=== PATIENT | female | born 1975 | race Caucasian/White ===

== ENCOUNTER → 2017-09-21 | Outpatient (CLI) | payer BC ==
--- NOTE | 2017-09-21 11:49 | MM ---
Reason for exam: screening (asymptomatic). Last mammogram was performed 1 year and 1 month ago. History: Family history of breast cancer in maternal grandmother at age 63. Took hormonal contraceptives for 7 years. Physical Findings: A clinical breast exam by your physician is recommended on an annual basis and results should be correlated with mammographic findings. MG 3D Screening Mammo W/Cad Bilateral CC and MLO view(s) were taken. Prior study comparison: August 09, 2016, bilateral MG 3d diag mammo w/cad VINOD. August 18, 2013, bilateral digital screening mammo w/CAD. The breast tissue is heterogeneously dense. This may lower the sensitivity of mammography. There are typically benign round calcifications in both breasts. There is chronic nodularity in the left breast. There is no discrete abnormality. ASSESSMENT: Benign, BI-RAD 2 RECOMMENDATION: Routine screening mammogram of both breasts in 1 year.
== END | disposition home or self-care (01) ==
LOC: RADMAMWWP 10:50
PROVIDERS: ATTEND Family Medicine
DX: Z12.31 Encounter for screening mammogram for malignant neoplasm of breast (principal)
CPT/HCPCS: 77063; G0202

== ENCOUNTER → 2018-11-14 | Outpatient (CLI) | payer BC ==
--- NOTE | 2018-11-15 10:23 | MM ---
Reason for exam: screening (asymptomatic). Last mammogram was performed 1 year and 2 months ago. History: Family history of breast cancer in maternal grandmother at age 63. Took hormonal contraceptives for 7 years. Physical Findings: A clinical breast exam by your physician is recommended on an annual basis and results should be correlated with mammographic findings. MG 3D Screening Mammo W/Cad Bilateral CC and MLO view(s) were taken. Prior study comparison: September 21, 2017, bilateral MG 3d screening mammo w/cad. August 09, 2016, bilateral MG 3d diag mammo w/cad VINOD. The breast tissue is heterogeneously dense. This may lower the sensitivity of mammography. Asymmetric denisty superiorly on the left MLO view does not persist on MLO OUTDOOR ADVENTURE LEADER view. No significant changes when compared with prior studies. ASSESSMENT: Negative, BI-RAD 1 RECOMMENDATION: Routine screening mammogram of both breasts in 1 year.
--- NOTE | 2018-11-15 15:15 | US ---
EXAMINATION TYPE: US thyroid st tissue head/neck DATE OF EXAM: 11/14/2018 COMPARISON: US CLINICAL HISTORY: E04.9 NONTOXIC GOITER. GLAND SIZE: Right Lobe: 5.1 x 1.9 x 1.7 cm Overall Parenchyma: homogenous Left Lobe: 4.8 x 1.3 x 1.5 cm Overall Parenchyma: homogeneous Isthmus Thickness: 0.4 cm NODULES RIGHT: # of nodules measured on right: 0 LEFT: # of nodules measured on left: 1 1. 0.5 X 0.3 x 0.6 cm hypoechoic mixed nodule at the lower pole with well-defined margins. This no dule is wider than tall and shows no intranodular vascularity. Prior size: not seen on prior ISTHMUS: # of nodules measured in the isthmus: 0 Bilateral neck scanned, no evidence of lymphadenopathy. IMPRESSION: Subcentimeter nodule left lobe thyroid
== END | disposition home or self-care (01) ==
LOC: RADMAMWWP 16:01
PROVIDERS: ATTEND Nurse Practitioner Family
DX: Z12.31 Encounter for screening mammogram for malignant neoplasm of breast (principal); E04.1 Nontoxic single thyroid nodule
CPT/HCPCS: 76536; 77063; 77067

== ENCOUNTER → 2018-11-14 | Outpatient (CLI) | payer BC ==
[2018-11-14 09:31] LABS: Basophils # (A) 0.1 k/uL (0-0.2); Basophils % (A) 1 %; Eosinophils # (A) 0.5 k/uL (0-0.7); Eosinophils % (A) 5 %; HCT 43.2 % (34.0-46.0); HGB 14.4 gm/dL (11.4-16.0); Lymphocytes # (A) 3.2 k/uL (1.0-4.8); Lymphocytes % (A) 35 %; MCH 30.6 pg (25.0-35.0); MCHC 33.4 g/dL (31.0-37.0); MCV 91.6 fL (80.0-100.0); Mean Platelet Volume 6.8; Monocytes # (A) 0.5 k/uL (0-1.0); Monocytes % (A) 5 %; Neutrophils # (A) 4.8 k/uL (1.3-7.7); Neutrophils % (A) 52 %; Platelet Count 323 k/uL (150-450); RBC 4.72 m/uL (3.80-5.40); RDW 13.1 % (11.5-15.5); WBC 9.2 k/uL (3.8-10.6)
[2018-11-14 18:16] LABS: Albumin 4.4 g/dL (3.80-4.90); Anion Gap 10.6 mmol/L (4.00-12.00); Calcium 9.5 mg/dL (8.7-10.3); Carbon Dioxide 23.4 mmol/L (21.6-31.8); Globulin 2.2 g/dL (1.6-3.3); LDL Cholesterol,Calculated 85.2 mg/dL (0.0-131.0); Potassium 4.6 mmol/L (3.5-5.5); Total Bilirubin 0.4 mg/dL (0.2-1.2); Total Protein 6.6 g/dL (6.2-8.2); VLDL Calculation 19.8 mg/dL (5.00-40.00)
[2018-11-14 18:24] LABS: T4, Free (Free Thyroxine) 1.2 ng/dL (0.80-1.80)
== END ==
LOC: LABWHC1 08:31
PROVIDERS: ATTEND Nurse Practitioner Family
DX: E04.9 Nontoxic goiter, unspecified (principal); E55.9 Vitamin D deficiency, unspecified; Z13.29 Encounter for screening for other suspected endocrine disorder; Z13.220 Encounter for screening for lipoid disorders
CPT/HCPCS: 36415; 80053; 80061; 82306; 84439; 84443; 84481; 85025

== ENCOUNTER → 2019-04-11 | Outpatient (CLI) | payer BC ==
--- NOTE | 2019-04-11 08:51 | CT ---
EXAMINATION TYPE: CT iac wo con DATE OF EXAM: 04/11/2019 COMPARISON: None HISTORY: Chronic left ear otalgia CT DLP: 150mGycm Automated exposure control for dose reduction was used. FINDINGS: The external auditory canals are patent bilaterally. Mastoid air cells show no evidence of abnormal opacification bilaterally. The middle ear ossicles are symmetric and unremarkable. There is no evidence of suspicious surrounding soft tissue density to suggest cholesteatoma. The scutum is preserved bilaterally. The cochlea and the semicircular canals are symmetric and unremarkable. Ves tibular aqueduct and internal carotid canal appear unremarkable. Temporomandibular joints are mainta ined bilaterally. Mucosal thickening of maxillary sinuses and sphenoid sinus. IMPRESSION: No significant abnormality seen to account for patient's symptoms.
== END | disposition home or self-care (01) ==
LOC: RADCTMAIN 08:20
PROVIDERS: ATTEND Otolaryngology
DX: H92.02 Otalgia, left ear (principal)
CPT/HCPCS: 70480

== ENCOUNTER 2021-03-28 06:18 | Emergency (ER) | payer BC ==
[2021-03-28 06:34] VITALS: TEMP 98
[2021-03-28] MEDS ORDERED: ONDANSETRON 4 MG/2 ML VIAL IVP STA (06:56)
[2021-03-28] MEDS ORDERED: KETOROLAC 15 MG/ML 1 ML VIAL IVP STA (06:56)
[2021-03-28] MEDS ORDERED: SODIUM CHLORIDE 0.9% 1,000 ML IV STA (06:56)
--- NOTE | 2021-03-28 07:08 | ED ---
Abdominal Pain HPI - General Chief Complaint: Abdominal Pain Stated Complaint: Abd Pain Time Seen by Provider: 03/28/21 06:45 Source: patient Mode of arrival: ambulatory Limitations: no limitations - History of Present Illness Initial Comments: Patient is a 45-year-old female presenting to emergency Department with complaints of left lower abdominal pain for the past 3 days. She states the pain started in left lower quadrant, with minimal at first but has steadily been progressing over the last couple days. She's also been constipated, she's tried MiraLAX and stool softener with only a small bowel movement in the last 4 days. She admits to history of ovarian torsion, partial hysterectomy, C-sections. She had a normal colonoscopy about 3 years ago, no signs of diverticuli, no history of kidney stones. Pain sometimes does shoot towards her left back. She denies any fevers or chills, no chest pain or shortness of breath. She does admit to some nausea but no vomiting. She denies any dysuria. She has no further complaints at this time. - Related Data Home Medications Medication Instructions Recorded Confirmed Rizatriptan Benzoate [Maxalt] 10 mg PO DAILY PRN 03/29/21 03/29/21 Allergies Allergy/AdvReac Type Severity Reaction Status Date / Time latex Allergy Swelling Verified 03/29/21 09:50 Sulfa (Sulfonamide Allergy Rash/Hives Verified 03/29/21 09:50 Antibiotics) Review of Systems ROS Statement: Those systems with pertinent positive or pertinent negative responses have been documented in the HPI. ROS Other: All systems not noted in ROS Statement are negative. Past Medical History Past Medical History: No Reported History History of Any Multi-Drug Resistant Organisms: None Reported Past Surgical History: Adenoidectomy, Section, Hysterectomy, Orthopedic Surgery, Tonsillectomy Additional Past Surgical History / Comment(s): lap ovarian cyst removal. right elbow or Past Anesthesia/Blood Transfusion Reactions: Postoperative Nausea & Vomiting (PONV) Past Psychological History: No Psychological Hx Reported Smoking Status: Never smoker Past Alcohol Use History: None Reported Past Drug Use History: None Reported - Past Family History Mother Family Medical History: Thyroid Disorder General Exam - General Exam Comments Initial Comments: GENERAL: Patient is well-developed and well-nourished. Patient is nontoxic and in mild distress. HEAD: Atraumatic, normocephalic. EYES: Pupils equal round and reactive to light, extraocular movements intact, sclera anicteric, conjunctiva are normal. Eyelids were unremarkable. ENT: TMs normal, nares patent, oropharynx clear without exudates. Moist mucous membranes. NECK: Normal range of motion, supple without lymphadenopathy or JVD. LUNGS: Unlabored respirations. Breath sounds clear to auscultation bilaterally and equal. No wheezes rales or rhonchi. HEART: Regular rate and rhythm without murmurs, rubs or gallops. ABDOMEN: Soft, tender to palpation of the left lower quadrant, hypoactive bowel sounds. No guarding, no rebound. No masses appreciated. : Deferred MUSCULOSKELETAL: Normal extremities with adequate strength and normal range of motion, no pitting or edema. No clubbing or cyanosis. NEUROLOGICAL: Patient is alert and oriented x 3. Motor and sensory are also intact. Cranial nerves II through XII grossly intact. Symmetrical smile. Normal speech, normal gait. PSYCH: Normal mood, normal affect. SKIN: Warm, Dry, normal turgor, no rashes or lesions noted. Limitations: no limitations Course Vital Signs 03/28/21 03/28/21 06:30 07:45 Temperature 98.0 F Pulse Rate 108 H 93 Respiratory 18 16 Rate Blood Pressure 169/107 166/88 O2 Sat by Pulse 98 99 Oximetry Medical Decision Making - Medical Decision Making Patient is a 45-year-old female here with left lower quadrant pain for the past 3 days. She's had some mild nausea no vomiting, constipated. She's had surgery for ovarian torsion, partial hysterectomy, C-sections, no other abdominal surgeries. Afebrile here. Labs are all within normal limits, no acute process, urine is normal. CT of the abdomen and pelvis shows nonspecific findings, correlate for possible colitis. I discussed these findings with the patient. She was given fluids, pain control. I recommended a stool softener to help with the constipation and see if that helps with her pain. I do not feel like antibiotics are warranted at this time since her symptoms have only been in a short amount time. She is comfortable with this plan of care. She'll follow-up with her primary care physician. Return parameters were discussed with her and she verbalized understanding. Case discussed with Dr. Duke. - Lab Data Result diagrams: 03/28/21 07:05 03/28/21 07:05 Lab Results 03/28/21 03/28/21 03/28/21 Range/Units 07:05 07:05 07:05 WBC 10.9 H (3.8-10.6) k/uL RBC 4.84 (3.80-5.40) m/uL Hgb 15.0 (11.4-16.0) gm/dL Hct 42.9 (34.0-46.0) % MCV 88.7 (80.0-100.0) fL MCH 31.1 (25.0-35.0) pg MCHC 35.1 (31.0-37.0) g/dL RDW 12.9 (11.5-15.5) % Plt Count 337 (150-450) k/uL MPV 6.7 Neutrophils % 65 % Lymphocytes % 25 % Monocytes % 5 % Eosinophils % 3 % Basophils % 1 % Neutrophils # 7.1 (1.3-7.7) k/uL Lymphocytes # 2.7 (1.0-4.8) k/uL Monocytes # 0.5 (0-1.0) k/uL Eosinophils # 0.3 (0-0.7) k/uL Basophils # 0.1 (0-0.2) k/uL Sodium 141 (137-145) mmol/L Potassium 4.2 (3.5-5.1) mmol/L Chloride 105 (98-107) mmol/L Carbon Dioxide 27 (22-30) mmol/L Anion Gap 9 mmol/L BUN 14 (7-17) mg/dL Creatinine 0.77 (0.52-1.04) mg/dL Est GFR (CKD-EPI)AfAm >90 (>60 ml/min/1.73 sqM) Est GFR (CKD-EPI)NonAf >90 (>60 ml/min/1.73 sqM) Glucose 111 H (74-99) mg/dL Plasma Lactic Acid Kenny (0.7-2.0) mmol/L Calcium 9.9 (8.4-10.2) mg/dL Total Bilirubin 0.3 (0.2-1.3) mg/dL AST 20 (14-36) U/L ALT 18 (4-34) U/L Alkaline Phosphatase 84 (38-126) U/L Total Protein 7.4 (6.3-8.2) g/dL Albumin 4.6 (3.5-5.0) g/dL Amylase 65 (30-110) U/L Lipase 84 (23-300) U/L Urine Color Light Yellow Urine Appearance Clear (Clear) Urine pH 6.5 (5.0-8.0) Ur Specific [place] 1.006 (1.001-1.035) Urine Protein Negative (Negative) Urine Glucose (UA) Negative (Negative) Urine Ketones Negative (Negative) Urine Blood Negative (Negative) Urine Nitrite Negative (Negative) Urine Bilirubin Negative (Negative) Urine Urobilinogen <2.0 (<2.0) mg/dL Ur Leukocyte Esterase Negative (Negative) 03/28/21 Range/Units 07:05 WBC (3.8-10.6) k/uL RBC (3.80-5.40) m/uL Hgb (11.4-16.0) gm/dL Hct (34.0-46.0) % MCV (80.0-100.0) fL MCH (25.0-35.0) pg MCHC (31.0-37.0) g/dL RDW (11.5-15.5) % Plt Count (150-450) k/uL MPV Neutrophils % % Lymphocytes % % Monocytes % % Eosinophils % % Basophils % % Neutrophils # (1.3-7.7) k/uL Lymphocytes # (1.0-4.8) k/uL Monocytes # (0-1.0) k/uL Eosinophils # (0-0.7) k/uL Basophils # (0-0.2) k/uL Sodium (137-145) mmol/L Potassium (3.5-5.1) mmol/L Chloride (98-107) mmol/L Carbon Dioxide (22-30) mmol/L Anion Gap mmol/L BUN (7-17) mg/dL Creatinine (0.52-1.04) mg/dL Est GFR (CKD-EPI)AfAm (>60 ml/min/1.73 sqM) Est GFR (CKD-EPI)NonAf (>60 ml/min/1.73 sqM) Glucose (74-99) mg/dL Plasma Lactic Acid Kenny 1.0 (0.7-2.0) mmol/L Calcium (8.4-10.2) mg/dL Total Bilirubin (0.2-1.3) mg/dL AST (14-36) U/L ALT (4-34) U/L Alkaline Phosphatase (38-126) U/L Total Protein (6.3-8.2) g/dL Albumin (3.5-5.0) g/dL Amylase (30-110) U/L Lipase (23-300) U/L Urine Color Urine Appearance (Clear) Urine pH (5.0-8.0) Ur Specific [place] (1.001-1.035) Urine Protein (Negative) Urine Glucose (UA) (Negative) Urine Ketones (Negative) Urine Blood (Negative) Urine Nitrite (Negative) Urine Bilirubin (Negative) Urine Urobilinogen (<2.0) mg/dL Ur Leukocyte Esterase (Negative) Disposition Clinical Impression: Abdominal pain, Constipation Disposition: HOME SELF-CARE Condition: Stable Instructions (If sedation given, give patient instructions): Abdominal Pain (ED) Additional Instructions: Please return to the Emergency Department if symptoms worsen or any other concerns. Continue to increase your water intake, trial stool softeners/enema at home. Follow up with your primary care physician. Is patient prescribed a controlled substance at d/c from ED?: No Referrals: Magaly Davison DO [Primary Care Provider] - 1-2 days Time of Disposition: 09:00
[2021-03-28 07:25] LABS: Basophils # (A) 0.1 k/uL (0-0.2); Basophils % (A) 1 %; Eosinophils # (A) 0.3 k/uL (0-0.7); Eosinophils % (A) 3 %; HCT 42.9 % (34.0-46.0); Lymphocytes # (A) 2.7 k/uL (1.0-4.8); Lymphocytes % (A) 25 %; MCH 31.1 pg (25.0-35.0); MCHC 35.1 g/dL (31.0-37.0); MCV 88.7 fL (80.0-100.0); Mean Platelet Volume 6.7; Monocytes # (A) 0.5 k/uL (0-1.0); Monocytes % (A) 5 %; Neutrophils # (A) 7.1 k/uL (1.3-7.7); Neutrophils % (A) 65 %; Platelet Count 337 k/uL (150-450); RBC 4.84 m/uL (3.80-5.40); RDW 12.9 % (11.5-15.5); WBC 10.9 k/uL (3.8-10.6)
[2021-03-28 07:34] LABS: Appearance,Urine Clear (Clear); Bilirubin,Urine Negative (Negative); Blood,Urine Negative (Negative); Color,Urine Light Yellow; Glucose,Urine (UA) Negative (Negative); Ketones,Urine Negative (Negative); Leukocyte Esterase,Urine Negative (Negative); Nitrite,Urine Negative (Negative); PH, Urine 6.5 (5.0-8.0); Protein,Urine Negative (Negative); Specific Gravity,Urine 1.006 (1.001-1.035); Urobilinogen,Urine <2.0 mg/dL (<2.0)
[2021-03-28 07:43] LABS: ALT 18 U/L (4-34); AST 20 U/L (14-36); African American GFR (CKD) >90 (>60 ml/min/1.73 sqM); Albumin 4.6 g/dL (3.5-5.0); Alkaline Phosphatase 84 U/L (38-126); Amylase 65 U/L (30-110); Anion Gap 9 mmol/L; Blood Urea Nitrogen 14 mg/dL (7-17); Calcium 9.9 mg/dL (8.4-10.2); Carbon Dioxide 27 mmol/L (22-30); Chloride 105 mmol/L (98-107); Glucose 111 mg/dL (74-99); Lipase 84 U/L (23-300); Non-African American GFR(CKD) >90 (>60 ml/min/1.73 sqM); Potassium 4.2 mmol/L (3.5-5.1); Sodium 141 mmol/L (137-145); Total Bilirubin 0.3 mg/dL (0.2-1.3); Total Protein 7.4 g/dL (6.3-8.2)
[2021-03-28 07:48] VITALS: BP 166/88; PULSE 93; RESP 16
--- NOTE | 2021-03-28 08:24 | CT ---
EXAMINATION TYPE: CT abdomen pelvis w con DATE OF EXAM: 03/28/2021 COMPARISON: CT 08/04/2016 HISTORY: Left lower quadrant pain CT DLP: 1738.2 mGycm Automated exposure control for dose reduction was used. TECHNIQUE: Helical acquisition of images from the lung bases through the pelvis have been completed. CONTRAST: Performed without Oral Contrast and with IV Contrast, patient injected with 100 mL of Isovue 300. FINDINGS: LUNG BASES: No significant abnormality is appreciated. AORTA: No significant abnormality is appreciated. LIVER/GB: Patient is post cholecystectomy. No evident liver mass. PANCREAS: No significant abnormality is seen. SPLEEN: No significant abnormality is seen. ADRENALS: No significant abnormality is seen. KIDNEYS: No significant abnormality is seen. REPRODUCTIVE ORGANS: Not seen BOWEL: The colon shows low density. Suspect there is been prior appendectomy, surgical clips at the level of the suspected. Correlate. FREE AIR: No Free Air visible. ASCITES: None visible. PELVIC ADENOPATHY: None visualized. RETROPERITONEAL ADENOPATHY: No Retroperitoneal Adenopathy visible. URINARY BLADDER: Urinary bladder wall thickening may be due to lack of distention, correlate for pos sible cystitis. OSSEOUS STRUCTURES: No significant abnormality is seen. IMPRESSION: NONSPECIFIC FINDINGS, CORRELATE FOR POSSIBLE COLITIS, CYSTITIS. Postop changes as described.
[2021-03-28] MEDS ORDERED: MORPHINE SULFATE 2 MG/ML SYRINGE IVP ONE (08:59)
== END 2021-03-28 09:06 | disposition home or self-care (01) ==
LOC: EC 06:18
DX: R10.32 Left lower quadrant pain (principal); K59.00 Constipation, unspecified; R11.0 Nausea; Z91.040 Latex allergy status; Z88.2 Allergy status to sulfonamides; Z90.710 Acquired absence of both cervix and uterus; Z87.42 Personal history of other diseases of the female genital tract
CPT/HCPCS: 36415; 80053; 82150; 83605; 83690; 85025; 81003; 74177; 99284; 96374; 96375; 96361; J2405; J2270; J1885; Q9967

== ENCOUNTER 2021-03-29 08:28 | Inpatient (IN) | payer BC ==
[2021-03-29] MEDS ORDERED: SODIUM CHLORIDE 0.9% 1,000 ML IV STA (08:58)
[2021-03-29] MEDS ORDERED: KETOROLAC 15 MG/ML 1 ML VIAL IVP STA ×2 (08:58→11:29)
[2021-03-29] MEDS ORDERED: ONDANSETRON 4 MG/2 ML VIAL IVP STA (08:58)
[2021-03-29 09:24] LABS: Basophils # (A) 0.1 k/uL (0-0.2); Basophils % (A) 0 %; Eosinophils # (A) 0.3 k/uL (0-0.7); Eosinophils % (A) 2 %; HCT 42.7 % (34.0-46.0); Lymphocytes # (A) 2.7 k/uL (1.0-4.8); Lymphocytes % (A) 23 %; MCH 31.2 pg (25.0-35.0); MCHC 35.2 g/dL (31.0-37.0); MCV 88.6 fL (80.0-100.0); Mean Platelet Volume 6.9; Monocytes # (A) 0.6 k/uL (0-1.0); Monocytes % (A) 5 %; Neutrophils # (A) 7.9 k/uL (1.3-7.7); Neutrophils % (A) 68 %; Platelet Count 336 k/uL (150-450); RBC 4.82 m/uL (3.80-5.40); RDW 12.9 % (11.5-15.5); WBC 11.7 k/uL (3.8-10.6)
[2021-03-29 09:42] LABS: ALT 18 U/L (4-34); AST 22 U/L (14-36); African American GFR (CKD) >90 (>60 ml/min/1.73 sqM); Albumin 4.5 g/dL (3.5-5.0); Alkaline Phosphatase 71 U/L (38-126); Amylase 58 U/L (30-110); Anion Gap 8 mmol/L; Blood Urea Nitrogen 9 mg/dL (7-17); Calcium 9.5 mg/dL (8.4-10.2); Carbon Dioxide 27 mmol/L (22-30); Chloride 106 mmol/L (98-107); Glucose 102 mg/dL (74-99); Lipase 69 U/L (23-300); Non-African American GFR(CKD) >90 (>60 ml/min/1.73 sqM); Potassium 3.7 mmol/L (3.5-5.1); Sodium 141 mmol/L (137-145); Total Bilirubin 0.7 mg/dL (0.2-1.3); Total Protein 7.4 g/dL (6.3-8.2)
[2021-03-29 09:49] LABS: Appearance,Urine Clear (Clear); Bilirubin,Urine Negative (Negative); Blood,Urine Negative (Negative); Color,Urine Yellow; Glucose,Urine (UA) Negative (Negative); Ketones,Urine Negative (Negative); Leukocyte Esterase,Urine Negative (Negative); Nitrite,Urine Negative (Negative); Protein,Urine Trace (Negative); Urobilinogen,Urine <2.0 mg/dL (<2.0)
--- NOTE | 2021-03-29 09:59 | US ---
EXAMINATION TYPE: US transvaginal DATE OF EXAM: 03/29/2021 COMPARISON: 03/28/2021 CLINICAL HISTORY: LLQ pain. Pain, partial hysterectomy per patient. TECHNIQUE: Transvaginal (TV). Date of LMP: Hysterectomy EXAM MEASUREMENTS: 1. Uterus: Surgically absent 2. Endometrium: Surgically absent 3. Right Ovary: Surgically absent vs obscured by overlying bowel gas 4. Left Ovary: Surgically absent vs obscured by overlying bowel gas 5. Bilateral Adnexa: wnl 6. Posterior cul-de-sac: no free fluid IMPRESSION: 1. Hysterectomy. 2. The bilateral adnexa are obscured due to overlying bowel gas. The ovaries are not visualized. Jeanne elation with surgical history of oophorectomy is recommended. 3. No free fluid.
--- NOTE | 2021-03-29 11:38 | ED ---
Abdominal Pain HPI - General Chief Complaint: Abdominal Pain Stated Complaint: Revisit/Abd Pain Time Seen by Provider: 03/29/21 08:34 Source: patient Mode of arrival: wheelchair Limitations: no limitations - History of Present Illness Initial Comments: Patient is a 45-year-old female presenting to the emergency Department with complaints of continued left lower quadrant pain for the last 4-5 days. Patient was seen and evaluated the ER yesterday, diagnosed with possible colitis. She states she's went home, did a bowel prep and enema and did have lots of bowel movements. She states her pain has worsened, is very tender to touch in the left lower quadrant. She's had history of multiple C-sections, complete hysterectomy, ovarian torsion, appendectomy, cholecystectomy. She denies any fevers or chills, no chest pain or shortness of breath. She continues to be nauseous and vomiting. She denies any dysuria. She has no further complaints at this time. Upon arrival to the ER her vitals are stable. - Related Data Home Medications Medication Instructions Recorded Confirmed Rizatriptan Benzoate [Maxalt] 10 mg PO DAILY PRN 03/29/21 03/29/21 Allergies Allergy/AdvReac Type Severity Reaction Status Date / Time latex Allergy Swelling Verified 03/29/21 09:50 Sulfa (Sulfonamide Allergy Rash/Hives Verified 03/29/21 09:50 Antibiotics) Review of Systems ROS Statement: Those systems with pertinent positive or pertinent negative responses have been documented in the HPI. ROS Other: All systems not noted in ROS Statement are negative. Past Medical History Past Medical History: No Reported History History of Any Multi-Drug Resistant Organisms: None Reported Past Surgical History: Adenoidectomy, Section, Hysterectomy, Orthopedic Surgery, Tonsillectomy Additional Past Surgical History / Comment(s): lap ovarian cyst removal. right elbow or Past Anesthesia/Blood Transfusion Reactions: Postoperative Nausea & Vomiting (PONV) Past Psychological History: No Psychological Hx Reported Smoking Status: Never smoker Past Alcohol Use History: None Reported Past Drug Use History: None Reported - Past Family History Mother Family Medical History: Thyroid Disorder General Exam - General Exam Comments Initial Comments: GENERAL: Patient is well-developed and well-nourished. Patient is nontoxic and in moderate distress. HEAD: Atraumatic, normocephalic. EYES: Pupils equal round and reactive to light, extraocular movements intact, sclera anicteric, conjunctiva are normal. Eyelids were unremarkable. ENT: TMs normal, nares patent, oropharynx clear without exudates. Moist mucous membranes. NECK: Normal range of motion, supple without lymphadenopathy or JVD. LUNGS: Unlabored respirations. Breath sounds clear to auscultation bilaterally and equal. No wheezes rales or rhonchi. HEART: Regular rate and rhythm without murmurs, rubs or gallops. ABDOMEN: Soft, extremely tender to palpation of the left lower quadrant, normoactive bowel sounds. No guarding, no rebound. No masses appreciated. : Deferred MUSCULOSKELETAL: Normal extremities with adequate strength and normal range of motion, no pitting or edema. No clubbing or cyanosis. NEUROLOGICAL: Patient is alert and oriented x 3. Motor and sensory are also intact. Cranial nerves II through XII grossly intact. Symmetrical smile. Normal speech, normal gait. PSYCH: Normal mood, normal affect. SKIN: Warm, Dry, normal turgor, no rashes or lesions noted. Limitations: no limitations Course Vital Signs 03/29/21 03/29/21 08:29 12:06 Temperature 97.8 F Pulse Rate 100 91 Respiratory 18 18 Rate Blood Pressure 143/94 143/80 O2 Sat by Pulse 100 97 Oximetry Medical Decision Making - Medical Decision Making Patient is a 45-year-old female presenting with left lower quadrant pain over the past 4-5 days. She was seen and evaluated yesterday in the ER, diagnosed with colitis, had normal labs and normal CT other than the colitis. Patient has continued to today. She is extremely tender left lower quadrant. I did do an ultrasound of the pelvis, no acute abnormality. Patient's laboratory continues to show no abnormalities, all within normal limits. Patient was given pain medicine, nausea medicine continues to have extreme lower left quadrant pain. Patient is requesting to see a Dr. Gan, I did speak with him and he did agree to see her on consult. Patient accepted by Dr. Crawford. Case discussed with Dr. Duke. - Lab Data Result diagrams: 03/29/21 09:14 03/29/21 09:14 Lab Results 03/29/21 03/29/21 03/29/21 Range/Units 09:14 09:14 09:14 WBC 11.7 H (3.8-10.6) k/uL RBC 4.82 (3.80-5.40) m/uL Hgb 15.0 (11.4-16.0) gm/dL Hct 42.7 (34.0-46.0) % MCV 88.6 (80.0-100.0) fL MCH 31.2 (25.0-35.0) pg MCHC 35.2 (31.0-37.0) g/dL RDW 12.9 (11.5-15.5) % Plt Count 336 (150-450) k/uL MPV 6.9 Neutrophils % 68 % Lymphocytes % 23 % Monocytes % 5 % Eosinophils % 2 % Basophils % 0 % Neutrophils # 7.9 H (1.3-7.7) k/uL Lymphocytes # 2.7 (1.0-4.8) k/uL Monocytes # 0.6 (0-1.0) k/uL Eosinophils # 0.3 (0-0.7) k/uL Basophils # 0.1 (0-0.2) k/uL Sodium 141 (137-145) mmol/L Potassium 3.7 (3.5-5.1) mmol/L Chloride 106 (98-107) mmol/L Carbon Dioxide 27 (22-30) mmol/L Anion Gap 8 mmol/L BUN 9 (7-17) mg/dL Creatinine 0.77 (0.52-1.04) mg/dL Est GFR (CKD-EPI)AfAm >90 (>60 ml/min/1.73 sqM) Est GFR (CKD-EPI)NonAf >90 (>60 ml/min/1.73 sqM) Glucose 102 H (74-99) mg/dL Plasma Lactic Acid Kenny (0.7-2.0) mmol/L Calcium 9.5 (8.4-10.2) mg/dL Total Bilirubin 0.7 (0.2-1.3) mg/dL AST 22 (14-36) U/L ALT 18 (4-34) U/L Alkaline Phosphatase 71 (38-126) U/L Total Protein 7.4 (6.3-8.2) g/dL Albumin 4.5 (3.5-5.0) g/dL Amylase 58 (30-110) U/L Lipase 69 (23-300) U/L Urine Color Yellow Urine Appearance Clear (Clear) Urine pH 7.0 (5.0-8.0) Ur Specific [place] 1.020 (1.001-1.035) Urine Protein Trace H (Negative) Urine Glucose (UA) Negative (Negative) Urine Ketones Negative (Negative) Urine Blood Negative (Negative) Urine Nitrite Negative (Negative) Urine Bilirubin Negative (Negative) Urine Urobilinogen <2.0 (<2.0) mg/dL Ur Leukocyte Esterase Negative (Negative) 03/29/21 Range/Units 09:14 WBC (3.8-10.6) k/uL RBC (3.80-5.40) m/uL Hgb (11.4-16.0) gm/dL Hct (34.0-46.0) % MCV (80.0-100.0) fL MCH (25.0-35.0) pg MCHC (31.0-37.0) g/dL RDW (11.5-15.5) % Plt Count (150-450) k/uL MPV Neutrophils % % Lymphocytes % % Monocytes % % Eosinophils % % Basophils % % Neutrophils # (1.3-7.7) k/uL Lymphocytes # (1.0-4.8) k/uL Monocytes # (0-1.0) k/uL Eosinophils # (0-0.7) k/uL Basophils # (0-0.2) k/uL Sodium (137-145) mmol/L Potassium (3.5-5.1) mmol/L Chloride (98-107) mmol/L Carbon Dioxide (22-30) mmol/L Anion Gap mmol/L BUN (7-17) mg/dL Creatinine (0.52-1.04) mg/dL Est GFR (CKD-EPI)AfAm (>60 ml/min/1.73 sqM) Est GFR (CKD-EPI)NonAf (>60 ml/min/1.73 sqM) Glucose (74-99) mg/dL Plasma Lactic Acid Kenny 1.2 (0.7-2.0) mmol/L Calcium (8.4-10.2) mg/dL Total Bilirubin (0.2-1.3) mg/dL AST (14-36) U/L ALT (4-34) U/L Alkaline Phosphatase (38-126) U/L Total Protein (6.3-8.2) g/dL Albumin (3.5-5.0) g/dL Amylase (30-110) U/L Lipase (23-300) U/L Urine Color Urine Appearance (Clear) Urine pH (5.0-8.0) Ur Specific [place] (1.001-1.035) Urine Protein (Negative) Urine Glucose (UA) (Negative) Urine Ketones (Negative) Urine Blood (Negative) Urine Nitrite (Negative) Urine Bilirubin (Negative) Urine Urobilinogen (<2.0) mg/dL Ur Leukocyte Esterase (Negative) Disposition Clinical Impression: Intractable abdominal pain, Nausea and vomiting Disposition: ADMITTED IP TO THIS [facility] Condition: Stable Decision Date: 03/29/21 Decision Time: 11:42
[2021-03-29] MEDS ORDERED: NALOXONE 0.4 MG/ML 1 ML VIAL IV PRN (11:40)
--- NOTE | 2021-03-29 12:51 | P.GSCN ---
History of Present Illness Consult date: 03/29/21 Reason for Consult: Abdominal pain History of present illness: 45-year-old female known to our service. Patient says she started having pain o n Sunday. Has been persistent since that time. Does wax and wane somewhat. Pain left lower quadrant radiating to the back. Mild nausea and 1 episode of vomiting yesterday. No change in bowel habits. No fevers. No dysuria or hematuria. No vaginal discharge. Says her pain reminds her of a previous right-sided ovarian torsion she had. Patient was concerned she may be constipated and took a bowel prep yesterday without resolution of her symptoms. She did have a CAT scan performed yesterday which showed no definite abnormalities. Bowel has very little stool present. Question mild wall thickening of the colon diffusely however likely secondary to nondistention. Review of Systems The patient denies any acute changes in vision or hearing, no dysphagia or odynophagia, no chest pain or shortness of breath, no dysuria or hematuria, no headache, no runny nose, no rectal bleeding or melena, no unexplained weight loss Past Medical History Past Medical History: No Reported History History of Any Multi-Drug Resistant Organisms: None Reported Past Surgical History: Adenoidectomy, Section, Hysterectomy, Orthopedic Surgery, Tonsillectomy Additional Past Surgical History / Comment(s): lap ovarian cyst removal. right elbow or Past Anesthesia/Blood Transfusion Reactions: Postoperative Nausea & Vomiting (PONV) Past Psychological History: No Psychological Hx Reported Smoking Status: Never smoker Past Alcohol Use History: None Reported Past Drug Use History: None Reported - Past Family History Mother Family Medical History: Thyroid Disorder Medications and Allergies Home Medications Medication Instructions Recorded Confirmed Type Rizatriptan Benzoate [Maxalt] 10 mg PO DAILY PRN 03/29/21 03/29/21 History Allergies Allergy/AdvReac Type Severity Reaction Status Date / Time latex Allergy Swelling Verified 03/29/21 09:50 Sulfa (Sulfonamide Allergy Rash/Hives Verified 03/29/21 09:50 Antibiotics) Surgical - Exam Vital Signs Temp Pulse Resp BP Pulse Ox 97.8 F 100 18 143/94 100 03/29/21 08:29 03/29/21 08:29 03/29/21 08:29 03/29/21 08:29 03/29/21 08:29 Physical exam: General: Well-developed, well-nourished HEENT: Normocephalic, sclerae nonicteric Abdomen: Mild left lower quadrant tenderness, nondistended Extremities: No edema Neuro: Alert and oriented Results - Labs 03/29/21 09:14 03/29/21 09:14 Abnormal Lab Results - Last 24 Hours (Table) 03/29/21 03/29/21 03/29/21 Range/Units 09:14 09:14 09:14 WBC 11.7 H (3.8-10.6) k/uL Neutrophils # 7.9 H (1.3-7.7) k/uL Glucose 102 H (74-99) mg/dL Urine Protein Trace H (Negative) Diabetes panel 03/29/21 Range/Units 09:14 Sodium 141 (137-145) mmol/L Potassium 3.7 (3.5-5.1) mmol/L Chloride 106 (98-107) mmol/L Carbon Dioxide 27 (22-30) mmol/L BUN 9 (7-17) mg/dL Creatinine 0.77 (0.52-1.04) mg/dL Glucose 102 H (74-99) mg/dL Calcium 9.5 (8.4-10.2) mg/dL AST 22 (14-36) U/L ALT 18 (4-34) U/L Alkaline Phosphatase 71 (38-126) U/L Total Protein 7.4 (6.3-8.2) g/dL Albumin 4.5 (3.5-5.0) g/dL Calcium panel 03/29/21 Range/Units 09:14 Calcium 9.5 (8.4-10.2) mg/dL Albumin 4.5 (3.5-5.0) g/dL Pituitary panel 03/29/21 Range/Units 09:14 Sodium 141 (137-145) mmol/L Potassium 3.7 (3.5-5.1) mmol/L Chloride 106 (98-107) mmol/L Carbon Dioxide 27 (22-30) mmol/L BUN 9 (7-17) mg/dL Creatinine 0.77 (0.52-1.04) mg/dL Glucose 102 H (74-99) mg/dL Calcium 9.5 (8.4-10.2) mg/dL Adrenal panel 03/29/21 Range/Units 09:14 Sodium 141 (137-145) mmol/L Potassium 3.7 (3.5-5.1) mmol/L Chloride 106 (98-107) mmol/L Carbon Dioxide 27 (22-30) mmol/L BUN 9 (7-17) mg/dL Creatinine 0.77 (0.52-1.04) mg/dL Glucose 102 H (74-99) mg/dL Calcium 9.5 (8.4-10.2) mg/dL Total Bilirubin 0.7 (0.2-1.3) mg/dL AST 22 (14-36) U/L ALT 18 (4-34) U/L Alkaline Phosphatase 71 (38-126) U/L Total Protein 7.4 (6.3-8.2) g/dL Albumin 4.5 (3.5-5.0) g/dL Assessment and Plan (1) Intractable abdominal pain Narrative/Plan: 45-year-old female with persistent left lower quadrant abdominal pain. Etiology unclear. Consider gynecology evaluation given the patient's history and lack o f other identifiable source of pain. Will empirically start IV Flagyl for possible mild colitis/diverticulitis. Will follow. Current Visit: Yes Status: Acute Code(s): R10.9 - UNSPECIFIED ABDOMINAL PAIN SNOMED Code(s): 35739118
[2021-03-29] MEDS: SODIUM CHLORIDE 0.9% 1,000 ML IV SCH (13:51)
[2021-03-29] MEDS ORDERED: SUMAtriptan succinate 50 MG TAB PO PRN (15:17)
[2021-03-29] MEDS: metroNIDAZOLE-NS PMX 500 MG in SALINE 1 100ML.BAG IVPB SCH ×2 (15:41→23:07)
[2021-03-29] MEDS: KETOROLAC 15 MG/ML 1 ML VIAL IVP PRN (20:23)
[2021-03-29] MEDS: ONDANSETRON 4 MG/2 ML VIAL IVP PRN (20:23)
--- NOTE | 2021-03-29 21:26 | P.HPIM ---
History of Present Illness H&P Date: 03/29/21 Chief Complaint: Abdominal pain Patient is a 45-year-old female came to ER with the complaints of abdominal pain in the left lower quadrant for the past 3 days. Sharp deep pain pain. 8 out of 10 in severity. Patient states that she was constipated and has been taking MiraLAX and stool softeners with small bowel movement in the last 3-4 days. Patient is to ER yesterday with similar complaints but improved with symptomatic management. The patient came back to ER since her pain is getting worse. Denied any complaints of fever or chills. Does have nausea or vomiting. Denied any unusual food intake. No recent travel. Denied any dysuria or hematuria. No hematemesis or melena. No chest pain or shortness of. No cough or sputum production. Patient says that she had left ovarian torsion about 20 years ago which was repaired initially. Patient did have after that. Few years after she had endometriosis followed by hysterectomy and a left ovarian resection. CT of the abdomen pelvis without contrast showed nonspecific findings correlate for possible colitis, cystitis. Postop changes noted. Transvaginal ultrasound showed hysterectomy. Bilateral adnexa are obscured due to overlying bowel gas. The ovaries are not visualized. Correlation with surgical history of oophorectomy is recommended. No free fluid. Laboratory data showed WBC 11.7 hemoglobin 15.0 and platelets 336 Sodium 10/24/1940 potassium 3.7 chloride 106 BUN 9 and creatinine 0.77 UA negative for infection Liver Enzymes are not elevated and lipase level 69 Review of Systems Constitutional: Patient denies any fever or chills . No generalized weakness or weight loss. Abdomen: Patient denied nausea vomiting and diarrhea . constipation and abd pain abdominal pain. Cardiovascular: Patient denies any chest pain or short of breath no palpitations. Respiratory: patient denied any cough is from production. No shortness of breath Neurologic: Patient denied any numbness or tingling headache. Musculoskeletal: Patient denies any complaints of joint swelling or deformity. Skin: Negative Psychiatric: Negative Endocrine: No heat or cold intolerance. No recent weight gain. Genitourinary: No dysuria or hematuria. All other 14 point ROS negative except the above Past Medical History Past Medical History: No Reported History History of Any Multi-Drug Resistant Organisms: None Reported Past Surgical History: Adenoidectomy, Section, Hysterectomy, Orthopedic Surgery, Tonsillectomy Additional Past Surgical History / Comment(s): lap ovarian cyst removal. right elbow or Past Anesthesia/Blood Transfusion Reactions: Postoperative Nausea & Vomiting (PONV) Past Psychological History: No Psychological Hx Reported Smoking Status: Never smoker Past Alcohol Use History: None Reported Past Drug Use History: None Reported - Past Family History Mother Family Medical History: Thyroid Disorder Additional Family Medical History / Comment(s): mom had hysterectomy young. Medications and Allergies Home Medications Medication Instructions Recorded Confirmed Type Rizatriptan Benzoate [Maxalt] 10 mg PO DAILY PRN 03/29/21 03/29/21 History Allergies Allergy/AdvReac Type Severity Reaction Status Date / Time latex Allergy Swelling Verified 03/29/21 09:50 Sulfa (Sulfonamide Allergy Rash/Hives Verified 03/29/21 09:50 Antibiotics) Physical Exam Vitals: Vital Signs Temp Pulse Pulse Resp BP BP Pulse Ox 03/29/21 13:44 98.1 F 103 H 18 134/86 100 03/29/21 12:06 91 18 143/80 97 03/29/21 08:29 97.8 F 100 18 143/94 100 Intake and Output 03/29/21 03/29/21 03/29/21 06:59 14:59 22:59 Other: Weight 108.5 kg PHYSICAL EXAMINATION: Patient is lying in the bed comfortably, no acute distress, awake alert and oriented.. HEENT: Normocephalic. Neck is supple. Pupils reactive. Nostrils clear. Oral cavity is moist. Neck reveals no JVD, carotid bruits, or thyromegaly. CHEST EXAMINATION: Trachea is central. Symmetrical expansion. Lung retana clear to auscultation and percussion. CARDIAC: Normal S1, S2 with no gallops. No murmurs ABDOMEN: Soft. Bowel sounds normal. No organomegaly. No abdominal bruits. LLQ mild tendernes with deep palpation. Extremities: reveal no edema. No clubbing or cyanosis Neurologically awake, alert, oriented x3 with well-coordinated movements. No focal deficits noted Skin: No rash or skin lesions. Psychiatric: Coperative. Nonsuicidal Musculoskeletal: No joint swelling or deformity. Normal range of motion. Results CBC & Chem 7: 03/29/21 09:14 03/29/21 09:14 Labs: Abnormal Lab Results - Last 24 Hours (Table) 03/29/21 03/29/21 03/29/21 Range/Units 09:14 09:14 09:14 WBC 11.7 H (3.8-10.6) k/uL Neutrophils # 7.9 H (1.3-7.7) k/uL Glucose 102 H (74-99) mg/dL Urine Protein Trace H (Negative) Thrombosis Risk Factor Assmnt - DVT/VTE Prophylaxis DVT/VTE Prophylaxis: Pharmacologic Prophylaxis ordered - Choose All That Apply Any of the Below Risk Factors Present?: Yes Each Factor Represents 1 point: Age 41-60 years, Obesity (BMI >25) Other Risk Factors: Yes Each Risk Factor Represents 2 Points: Laparoscopic surgery Thrombosis Risk Factor Assessment Total Risk Factor Score: 4 Thrombosis Risk Factor Assessment Level: Moderate Risk Assessment and Plan Assessment: Left lower quadrant abdominal pain with possible colitis History of left ovarian torsion repair. History of left oophorectomy and hysterectomy Constipation DVT prophylaxis with heparin subcu Plan: Patient will be continued on IV hydration and symptomatic management for nausea and vomiting. Continue with pain management with morphine and Toradol.. Start Flagyl 500 mg every 8 hourly and follow-up closely. General surgery is on board. OB was consulted due to prior history of bilateral nephrectomy and also history of ovarian torsion on the left side. Discussed with the patient at bedside in detail.
[2021-03-29] MEDS: MORPHINE SULFATE 4 MG/ML SYRINGE IV PRN (22:24)
[2021-03-29] MEDS: HEPARIN SODIUM,PORCINE/PF 5,000 UNIT/0.5 ML SYRINGE SQ SCH (23:08)
[2021-03-30] MEDS: SODIUM CHLORIDE 0.9% 1,000 ML IV SCH ×3 (01:23→23:57)
[2021-03-30] MEDS: ONDANSETRON 4 MG/2 ML VIAL IVP PRN (05:12)
[2021-03-30] MEDS: MORPHINE SULFATE 4 MG/ML SYRINGE IV PRN (05:13)
[2021-03-30 06:18] LABS: Basophils # (A) 0.1 k/uL (0-0.2); Basophils % (A) 1 %; Eosinophils # (A) 0.3 k/uL (0-0.7); Eosinophils % (A) 3 %; HCT 40.7 % (34.0-46.0); HGB 14.1 gm/dL (11.4-16.0); Lymphocytes # (A) 2.8 k/uL (1.0-4.8); Lymphocytes % (A) 30 %; MCH 31.2 pg (25.0-35.0); MCHC 34.8 g/dL (31.0-37.0); MCV 89.7 fL (80.0-100.0); Mean Platelet Volume 6.5; Monocytes # (A) 0.5 k/uL (0-1.0); Monocytes % (A) 5 %; Neutrophils # (A) 5.8 k/uL (1.3-7.7); Neutrophils % (A) 61 %; Platelet Count 318 k/uL (150-450); RBC 4.53 m/uL (3.80-5.40); RDW 12.9 % (11.5-15.5); WBC 9.5 k/uL (3.8-10.6)
[2021-03-30 06:33] LABS: African American GFR (CKD) >90 (>60 ml/min/1.73 sqM); Anion Gap 7 mmol/L; Blood Urea Nitrogen 8 mg/dL (7-17); Calcium 8.7 mg/dL (8.4-10.2); Carbon Dioxide 26 mmol/L (22-30); Chloride 107 mmol/L (98-107); Glucose 89 mg/dL (74-99); Non-African American GFR(CKD) >90 (>60 ml/min/1.73 sqM); Potassium 3.9 mmol/L (3.5-5.1); Sodium 140 mmol/L (137-145)
[2021-03-30] MEDS: HEPARIN SODIUM,PORCINE/PF 5,000 UNIT/0.5 ML SYRINGE SQ SCH ×3 (07:58→21:06)
[2021-03-30] MEDS: metroNIDAZOLE-NS PMX 500 MG in SALINE 1 100ML.BAG IVPB SCH ×3 (07:58→23:55)
[2021-03-30] MEDS: FAMOTIDINE 20 MG/2 ML VIAL IV SCH ×2 (07:58→20:03)
--- NOTE | 2021-03-30 08:07 | P.OBCN ---
History of Present Illness Consult date: 03/30/21 Reason for consult: pelvic pain (LLQ) Chief complaint: Left Lower Quadrant pain History of present illness: 45-year-old presents with a 4 day history of left lower quadrant pain. The symptoms started with a decrease in appetite and some pulling on the left side and to the back. She then started to have pressure with urination and a pulling on the left side. Her pain became 8 out of 10 and she presented to the emergency room. CAT scan was negative, possible colitis and no ovaries or uterus seen. Transvaginal ultrasound was also done revealing no uterus, consistent with hysterectomy and left oophorectomy, also did not see her ovaries. If she did have a torsion, that should be seen on US and she would have high wbc. The findings are not consistent with any ovarian issue. Pt says her pain starts at the old C/S scar and radiates left like a pulling pressure. Review of Systems All systems: negative Constitutional: Denies chills, Denies fever Eyes: denies blurred vision, denies pain Ears, nose, mouth and throat: Denies headache, Denies sore throat Cardiovascular: Denies chest pain, Denies shortness of breath Respiratory: Denies cough Gastrointestinal: Reports abdominal pain, Reports early satiety, Denies d iarrhea, Denies nausea, Denies vomiting Genitourinary: Denies dysuria, Denies hematuria Musculoskeletal: Denies myalgias Integumentary: Denies pruritus, Denies rash Neurological: Denies numbness, Denies weakness Psychiatric: Denies anxiety, Denies depression Endocrine: Denies fatigue, Denies weight change Past Medical History Past Medical History: No Reported History History of Any Multi-Drug Resistant Organisms: None Reported Past Surgical History: Adenoidectomy, Section, Hysterectomy (with left oopherectomy), Orthopedic Surgery, Tonsillectomy Additional Past Surgical History / Comment(s): lap ovarian cyst removal. right elbow or Past Anesthesia/Blood Transfusion Reactions: Postoperative Nausea & Vomiting (PONV) Past Psychological History: No Psychological Hx Reported Smoking Status: Never smoker Past Alcohol Use History: None Reported Past Drug Use History: None Reported - Past Family History Mother Family Medical History: Thyroid Disorder Additional Family Medical History / Comment(s): mom had hysterectomy young. Medications and Allergies Home Medications Medication Instructions Recorded Confirmed Type Rizatriptan Benzoate [Maxalt] 10 mg PO DAILY PRN 03/29/21 03/29/21 History Allergies Allergy/AdvReac Type Severity Reaction Status Date / Time latex Allergy Swelling Verified 03/29/21 09:50 Sulfa (Sulfonamide Allergy Rash/Hives Verified 03/29/21 09:50 Antibiotics) Exam Osteopathic Statement: *. No significant issues noted on an osteopathic structural exam other than those noted in the History and Physical/Consult. Vital Signs Temp Pulse Pulse Resp BP BP Pulse Ox 03/30/21 01:40 97.7 F 79 16 134/84 95 03/29/21 20:01 97.8 F 86 16 129/90 94 L 03/29/21 13:44 98.1 F 103 H 18 134/86 100 03/29/21 12:06 91 18 143/80 97 03/29/21 08:29 97.8 F 100 18 143/94 100 Intake and Output 03/29/21 03/30/21 03/30/21 22:59 06:59 14:59 Other: # Voids 1 3 HEart: RRR Lungs: CTAB Abd: soft, nontender Extremeties: neg delma's bimanual: vaginal cuff is intact, adnexa has no fullness, there is diffuse tenderness on the left side but no masses. absent uterus consistent with hysterectomy Results Result Diagrams: 03/30/21 05:50 03/30/21 05:50 Abnormal Lab Results - Last 24 Hours (Table) 03/29/21 03/29/21 03/29/21 Range/Units 09:14 09:14 09:14 WBC 11.7 H (3.8-10.6) k/uL Neutrophils # 7.9 H (1.3-7.7) k/uL Glucose 102 H (74-99) mg/dL Urine Protein Trace H (Negative) Assessment and Plan (1) Left lower quadrant abdominal pain Current Visit: Yes Status: Acute Code(s): R10.32 - LEFT LOWER QUADRANT PAIN SNOMED Code(s): 557954853 Plan: 1. I don't believe her pain is gynecologic in origin. It is possible some adhesions have developed and could be pulling on omentum or bowel with increased inflammation that is not visible on imaging. 2. rec cont flagyl for now, decrease inflammation
[2021-03-30] MEDS: KETOROLAC 15 MG/ML 1 ML VIAL IVP PRN ×2 (10:58→20:02)
--- NOTE | 2021-03-30 11:43 | P.PN ---
<Sandra Ascencio - Last Filed: 03/30/21 11:38> Subjective Progress Note Date: 03/30/21 CHIEF COMPLAINT: Abdominal pain HISTORY OF PRESENT ILLNESS: Patient is still complaining of left lower quadrant abdominal pain. She reports the pain is still the same. She rates her pain about a 6 out of 10. She describes that the pain as a burning, pulling type of pain. Pain is worse with movement. She becomes nauseated as the pain increases. Pain medication is helping. Patient seen by MANAGER STUDIO service and they felt that the pain was not gynecological and possibly due to adhesions. Afebrile. WBC has normalized at 9.5 hemoglobin 14.1 PHYSICAL EXAM: VITAL SIGNS: Reviewed. GENERAL: Well-developed in no acute distress. HEENT: No sclera icterus. Extraocular movements grossly intact. Moist buccal mucosa. Head is atraumatic, normocephalic. ABDOMEN: Soft. Nondistended. Tenderness both patient of the left lower quadra nt NEUROLOGIC: Alert and oriented. Cranial nerves II through XII grossly intact. ASSESSMENT: 1. Left lower quadrant abdominal pain 2. Possible mild colitis/diverticulitis PLAN: -Further recommendations forthcoming per surgeon -Continue IV Flagyl empirically -Continue IV fluids. Note IV fluids were increased to 100 mL per hour. Patient feeling dry Physician Cpa [employer] note has been reviewed by physician. Signing provider agrees with the documented findings, assessment, and plan of care. Objective - Vital Signs Vital signs: Vital Signs Temp 98.2 F 03/30/21 08:19 Pulse 80 03/30/21 08:19 Resp 17 03/30/21 08:19 BP 127/83 03/30/21 08:19 Pulse Ox 95 03/30/21 08:19 Intake & Output 03/29/21 03/30/21 03/30/21 18:59 06:59 18:59 Weight 108.5 kg Other: Voiding Method Toilet # Voids 1 3 - Labs CBC & Chem 7: 03/30/21 05:50 03/30/21 05:50 <Trenton Gan - Last Filed: 03/30/21 12:27> Subjective As above. Patient still having left-sided pain. Describes it as a pulling bu rning sensation from the Pfannenstiel incision towards the umbilicus today. White blood cell count was normal. Gynecologic evaluation appreciated. Patient says she was able to confirm that she had her left ovary previously removed. Will advance diet. Continue to monitor pain. Continue empiric Flagyl for possible mild colitis or diverticulitis. Will follow. Objective - Vital Signs Vital signs: Vital Signs Temp 98.2 F 03/30/21 08:19 Pulse 80 03/30/21 08:19 Resp 17 03/30/21 08:19 BP 127/83 03/30/21 08:19 Pulse Ox 95 03/30/21 08:19 Intake & Output 03/29/21 03/30/21 03/30/21 18:59 06:59 18:59 Weight 108.5 kg Other: Voiding Method Toilet # Voids 1 3 - Labs CBC & Chem 7: 03/30/21 05:50 03/30/21 05:50 Assessment and Plan (1) Intractable abdominal pain Current Visit: Yes Status: Acute Code(s): R10.9 - UNSPECIFIED ABDOMINAL PAIN SNOMED Code(s): 02327396
[2021-03-31] MEDS: ONDANSETRON 4 MG/2 ML VIAL IVP PRN (05:02)
[2021-03-31] MEDS: KETOROLAC 15 MG/ML 1 ML VIAL IVP PRN ×2 (05:02→12:49)
[2021-03-31] MEDS: metroNIDAZOLE-NS PMX 500 MG in SALINE 1 100ML.BAG IVPB SCH ×2 (08:28→16:28)
[2021-03-31] MEDS: FAMOTIDINE 20 MG/2 ML VIAL IV SCH ×2 (08:28→21:50)
[2021-03-31] MEDS: HEPARIN SODIUM,PORCINE/PF 5,000 UNIT/0.5 ML SYRINGE SQ SCH ×3 (08:29→23:13)
--- NOTE | 2021-03-31 12:26 | P.PN ---
<Sandra Ascencio - Last Filed: 03/31/21 12:21> Subjective Progress Note Date: 03/31/21 CHIEF COMPLAINT: Abdominal pain HISTORY OF PRESENT ILLNESS: Patient is still complaining of left lower quadrant abdominal pain. Patient reports that her pain is slightly better than yesterday. She describes her pain still as a pulling and burning sensation. She has pain with movement. She was able to eat dinner. She had a stomach ache after eating with an episode of loose stool. She denies any nausea or vomiting. Afebrile. No new labs. She reports the pain is still the same. She rates her pain about a 6 out of 10. She describes that the pain as a burning, pulling type of pain. Pain is worse with movement. She becomes nauseated as the pain increases. Pain medication is helping. Patient seen by PROBATION OFFICER service and they felt that the pain was not gynecological and possibly due to adhesions. Afebrile. WBC has normalized at 9.5 hemoglobin 14.1 PHYSICAL EXAM: VITAL SIGNS: Reviewed. GENERAL: Well-developed in no acute distress. HEENT: No sclera icterus. Extraocular movements grossly intact. Moist buccal mucosa. Head is atraumatic, normocephalic. ABDOMEN: Soft. Nondistended. Tenderness both patient of the left lower quadrantInto the left of the umbilicus NEUROLOGIC: Alert and oriented. Cranial nerves II through XII grossly intact. ASSESSMENT: 1. Left lower quadrant abdominal pain 2. Possible mild colitis/diverticulitis PLAN: -Continue regular diet -Continue to monitor -Continue IV Flagyl empirically Physician Gun Repair Clerk note has been reviewed by physician. Signing provider agrees with the documented findings, assessment, and plan of care. Objective - Vital Signs Vital signs: Vital Signs Temp 98.3 F 03/31/21 08:10 Pulse 79 03/31/21 08:10 Resp 16 03/31/21 08:10 BP 134/92 03/31/21 08:10 Pulse Ox 97 03/31/21 08:10 Intake & Output 03/30/21 03/31/21 03/31/21 18:59 06:59 18:59 Other: Voiding Method Toilet # Voids 3 3 - Labs CBC & Chem 7: 03/30/21 05:50 03/30/21 05:50 <Trenton Gan - Last Filed: 03/31/21 16:39> Subjective As above. Patient still having left lower quadrant pain although slightly improved. Patient frustrated with the lack of identifiable etiology. Recent CAT scan performed without contrast. We'll schedule for repeat CAT scan at this time. Await those findings. Objective - Vital Signs Vital signs: Vital Signs Temp 98.2 F 03/31/21 14:00 Pulse 94 03/31/21 14:00 Resp 18 03/31/21 14:00 BP 140/99 03/31/21 14:00 Pulse Ox 97 03/31/21 14:00 Intake & Output 03/30/21 03/31/21 03/31/21 18:59 06:59 18:59 Other: Voiding Method Toilet # Voids 3 3 - Labs CBC & Chem 7: 03/30/21 05:50 03/30/21 05:50 Assessment and Plan (1) Intractable abdominal pain Current Visit: Yes Status: Acute Code(s): R10.9 - UNSPECIFIED ABDOMINAL PAIN SNOMED Code(s): 83099411
[2021-03-31] MEDS: IOPAMIDOL CONTRAST (ORAL USE) VIAL PO PRN ×2 (16:54→18:08)
--- NOTE | 2021-03-31 19:45 | CT ---
EXAMINATION TYPE: CT abdomen pelvis w con DATE OF EXAM: 03/31/2021 HISTORY: LLQ pain CT DLP: 1660mGycm Automated Exposure Control for Dose Reduction was Utilized. CONTRAST: CT scan of the abdomen and pelvis is performed with IV Contrast, patient injected with 100 mL of Isov ue 300. COMPARISON: CT abdomen and pelvis 3 days ago FINDINGS: LUNG BASES: No significant abnormality is appreciated. LIVER/GB: Cholecystectomy clips are redemonstrated. PANCREAS: No significant abnormality is seen. SPLEEN: No significant abnormality is seen. ADRENALS: No significant abnormality is seen. KIDNEYS: No significant abnormality is seen. BOWEL: Oral contrast reaches level of the hepatic flexure on current study making evaluation of dista l bowel slightly suboptimal. No suspicious small or large bowel dilatation. Focal fat stranding anter ior to the distal left colon near axial image 54 is more prominent than prior study. No well-formed f luid collection or abscess. No pneumoperitoneum. No significant diverticular disease. UTERUS/ADNEXA: Uterus once again noted surgically absent. Scattered left-sided pelvic phleboliths. LYMPH NODES: No greater than 1cm abdominal or pelvic lymph nodes are appreciated. OSSEOUS STRUCTURES: Facet arthropathy lower lumbar levels. OTHER: Suspect soft tissue medicine injection site with small foci of air and fat stranding right pel charles anterior abdominal wall near axial image 63. Small fat-containing umbilical hernia redemonstrated IMPRESSION: Worsening inflammatory change anterior distal left colon left lower quadrant with fat den sity possibly tubular in shape, I suspect epiploic appendagitis over a mild focal acute colitis.
[2021-03-31] MEDS: SODIUM CHLORIDE 0.9% 1,000 ML IV SCH ×2 (19:54→21:50)
[2021-03-31 20:05] VITALS: TEMP 97.9
[2021-03-31] MEDS ORDERED: ACETAMINOPHEN TAB 325 MG TAB PO PRN (21:12)
[2021-03-31] MEDS ORDERED: HYDROcodone/APAP 5-325MG 1 EACH TAB PO PRN (21:12)
[2021-03-31] MEDS: traMADol 50 MG TAB PO PRN (21:49)
[2021-04-01] MEDS: metroNIDAZOLE-NS PMX 500 MG in SALINE 1 100ML.BAG IVPB SCH ×2 (00:04→09:06)
[2021-04-01] MEDS: KETOROLAC 15 MG/ML 1 ML VIAL IVP PRN ×3 (00:05→11:27)
--- NOTE | 2021-04-01 00:43 | P.PN ---
Subjective Progress Note Date: 03/30/21 Principal diagnosis: Left lower quadrant abdominal pain with possible colitis Patient is a 45-year-old female came to ER with the complaints of abdominal pain in the left lower quadrant for the past 3 days. Sharp deep pain pain. 8 out of 10 in severity. Patient states that she was constipated and has been taking MiraLAX and stool softeners with small bowel movement in the last 3-4 days. Patient is to ER yesterday with similar complaints but improved with symptomatic management. The patient came back to ER since her pain is getting worse. Denied any complaints of fever or chills. Does have nausea or vomiting. Denied any unusual food intake. No recent travel. Denied any dysuria or hematuria. No hematemesis or melena. No chest pain or shortness of. No cough or sputum production. Patient says that she had left ovarian torsion about 20 years ago which was rep aired initially. Patient did have after that. Few years after she had endometriosis followed by hysterectomy and a left ovarian resection. CT of the abdomen pelvis without contrast showed nonspecific findings correlate for possible colitis, cystitis. Postop changes noted. Transvaginal ultrasound showed hysterectomy. Bilateral adnexa are obscured due to overlying bowel gas. The ovaries are not visualized. Correlation with surgical history of oophorectomy is recommended. No free fluid. Laboratory data showed WBC 11.7 hemoglobin 15.0 and platelets 336 Sodium 10/24/1940 potassium 3.7 chloride 106 BUN 9 and creatinine 0.77 UA negative for infection Liver Enzymes are not elevated and lipase level 69 03/30/2021 Patient is currently lying in the bed. Awake alert and oriented x3. Left lower quadrant abdominal pain is improved compared to yesterday. Started on oral diet and is very aggressive. Patient has been afebrile. Continued on antibiotics of Flagyl. Laboratory data showed WBC trending down to 9.5 hemoglobin 14.1 and platelets 318 electrolytes within normal limits. Patient is being followed by general surgery and also seen by FINANCIAL COORDINATOR. Current medications reviewed. Objective - Vital Signs Vital signs: Vital Signs Temp 98.2 F 03/30/21 19:51 Pulse 91 03/30/21 19:51 Resp 16 03/30/21 19:51 BP 141/86 03/30/21 19:51 Pulse Ox 98 03/30/21 19:51 Intake & Output 03/30/21 03/30/21 03/31/21 06:59 18:59 06:59 Other: Voiding Method Toilet # Voids 3 3 - Exam PHYSICAL EXAMINATION: Patient is lying in the bed comfortably, no acute distress, awake alert and oriented.. HEENT: Normocephalic. Neck is supple. Pupils reactive. Nostrils clear. Oral cavity is moist. Neck reveals no JVD, carotid bruits, or thyromegaly. CHEST EXAMINATION: Trachea is central. Symmetrical expansion. Lung retana clear to auscultation and percussion. CARDIAC: Normal S1, S2 with no gallops. No murmurs ABDOMEN: Soft. Bowel sounds normal. No organomegaly. No abdominal bruits. LLQ mild tendernes with deep palpation. Extremities: reveal no edema. No clubbing or cyanosis Neurologically awake, alert, oriented x3 with well-coordinated movements. No focal deficits noted Skin: No rash or skin lesions. Psychiatric: Coperative. Nonsuicidal Musculoskeletal: No joint swelling or deformity. Normal range of motion. - Labs CBC & Chem 7: 03/30/21 05:50 03/30/21 05:50 Assessment and Plan Assessment: Left lower quadrant abdominal pain with possible colitis History of left ovarian torsion repair. History of left oophorectomy and hysterectomy Constipation DVT prophylaxis with heparin subcu Plan: Patient will be continued on IV hydration and symptomatic management for nausea and vomiting. started on liquid diet. Continue with pain management with morphine and Toradol.. Start Flagyl 500 mg every 8 hourly and follow-up closely. General surgery is on board. OB was consulted due to prior history of bilateral nephrectomy and also history of ovarian torsion on the left side. Possible adhisions pulling the omentum is also in consideration. Discussed with the patient at bedside in detail.
--- NOTE | 2021-04-01 00:50 | P.PN ---
Subjective Progress Note Date: 03/31/21 Principal diagnosis: Left lower quadrant abdominal pain with possible colitis Patient is a 45-year-old female came to ER with the complaints of abdominal pain in the left lower quadrant for the past 3 days. Sharp deep pain pain. 8 out of 10 in severity. Patient states that she was constipated and has been taking MiraLAX and stool softeners with small bowel movement in the last 3-4 days. Patient is to ER yesterday with similar complaints but improved with symptomatic management. The patient came back to ER since her pain is getting worse. Denied any complaints of fever or chills. Does have nausea or vomiting. Denied any unusual food intake. No recent travel. Denied any dysuria or hematuria. No hematemesis or melena. No chest pain or shortness of. No cough or sputum production. Patient says that she had left ovarian torsion about 20 years ago which was rep aired initially. Patient did have after that. Few years after she had endometriosis followed by hysterectomy and a left ovarian resection. CT of the abdomen pelvis without contrast showed nonspecific findings correlate for possible colitis, cystitis. Postop changes noted. Transvaginal ultrasound showed hysterectomy. Bilateral adnexa are obscured due to overlying bowel gas. The ovaries are not visualized. Correlation with surgical history of oophorectomy is recommended. No free fluid. Laboratory data showed WBC 11.7 hemoglobin 15.0 and platelets 336 Sodium 10/24/1940 potassium 3.7 chloride 106 BUN 9 and creatinine 0.77 UA negative for infection Liver Enzymes are not elevated and lipase level 69 03/30/2021 Patient is currently lying in the bed. Awake alert and oriented x3. Left lower quadrant abdominal pain is improved compared to yesterday. Started on oral diet and is very aggressive. Patient has been afebrile. Continued on antibiotics of Flagyl. Laboratory data showed WBC trending down to 9.5 hemoglobin 14.1 and platelets 318 electrolytes within normal limits. Patient is being followed by general surgery and also seen by JEEPER OPERATOR. 03/31/2021 Patient is currently sitting in the chair. Still having left lower quadrant abdominal pain.. Requiring pain medications. Otherwise tolerating oral diet. Patient has been afebrile. Minimal nausea. No episodes of vomiting. No headache or dizziness or lightheadedness. No chest pain or shortness of breath. General surgery is following. Repeat CT of the abdomen pelvis was ordered due to continued ongoing pain. Continued on empiric antibiotics involve Flagyl. Current medications reviewed. Objective - Vital Signs Vital signs: Vital Signs Temp 98.2 F 03/31/21 14:00 Pulse 94 03/31/21 14:00 Resp 18 03/31/21 14:00 BP 140/99 03/31/21 14:00 Pulse Ox 97 03/31/21 14:00 Intake & Output 03/30/21 03/31/21 03/31/21 18:59 06:59 18:59 Other: Voiding Method Toilet # Voids 3 3 - Exam PHYSICAL EXAMINATION: Patient is lying in the bed comfortably, no acute distress, awake alert and oriented.. HEENT: Normocephalic. Neck is supple. Pupils reactive. Nostrils clear. Oral ca vity is moist. Neck reveals no JVD, carotid bruits, or thyromegaly. CHEST EXAMINATION: Trachea is central. Symmetrical expansion. Lung retana clear to auscultation and percussion. CARDIAC: Normal S1, S2 with no gallops. No murmurs ABDOMEN: Soft. Bowel sounds normal. No organomegaly. No abdominal bruits. LLQ mild tendernes with deep palpation. Extremities: reveal no edema. No clubbing or cyanosis Neurologically awake, alert, oriented x3 with well-coordinated movements. No focal deficits noted Skin: No rash or skin lesions. Psychiatric: Coperative. Nonsuicidal Musculoskeletal: No joint swelling or deformity. Normal range of motion. - Labs CBC & Chem 7: 03/30/21 05:50 03/30/21 05:50 Assessment and Plan Assessment: Left lower quadrant abdominal pain with possible colitis History of left ovarian torsion repair. History of left oophorectomy and hysterectomy Constipation DVT prophylaxis with heparin subcu Plan: Patient will be continued on IV hydration and symptomatic management for nausea and vomiting. started on liquid diet.03/31/[address] of the abdomen pelvis was ordered due to continued ongoing pain. Continued on empiric antibiotics involve Flagyl. Continue with pain management with morphine and Toradol.. Start Flagyl 500 mg every 8 hourly and follow-up closely. General surgery is on board. OB was consulted due to prior history of bilateral nephrectomy and also history of ovarian torsion on the left side. Possible adhisions pulling the omentum is also in consideration. Discussed with the patient at bedside in detail.
[2021-04-01] MEDS ORDERED: LEVOFLOXACIN 500MG-D5W PMX 500 MG in DEXTROSE/WATER 1 100ML.BAG IVPB SCH ×2 (01:00→08:00)
[2021-04-01 06:50] LABS: WBC 8.3 k/uL (3.8-10.6)
[2021-04-01 06:51] LABS: Basophils % (A) 1 %; Eosinophils # (A) 0.4 k/uL (0-0.7); Eosinophils % (A) 5 %; HCT 38.6 % (34.0-46.0); HGB 13.2 gm/dL (11.4-16.0); Lymphocytes # (A) 1.4 k/uL (1.0-4.8); Lymphocytes % (A) 17 %; MCH 30.5 pg (25.0-35.0); MCHC 34.3 g/dL (31.0-37.0); MCV 88.9 fL (80.0-100.0); Mean Platelet Volume 6.7; Monocytes # (A) 0.6 k/uL (0-1.0); Monocytes % (A) 7 %; Neutrophils # (A) 5.8 k/uL (1.3-7.7); Neutrophils % (A) 70 %; Platelet Count 291 k/uL (150-450); RBC 4.35 m/uL (3.80-5.40); RDW 12.9 % (11.5-15.5)
[2021-04-01 07:03] LABS: African American GFR (CKD) >90 (>60 ml/min/1.73 sqM); Anion Gap 8 mmol/L; Blood Urea Nitrogen 11 mg/dL (7-17); Calcium 8.8 mg/dL (8.4-10.2); Carbon Dioxide 25 mmol/L (22-30); Chloride 106 mmol/L (98-107); Glucose 95 mg/dL (74-99); Non-African American GFR(CKD) 90 (>60 ml/min/1.73 sqM); Potassium 3.9 mmol/L (3.5-5.1); Sodium 139 mmol/L (137-145)
[2021-04-01] MEDS: FAMOTIDINE 20 MG/2 ML VIAL IV SCH (09:06)
[2021-04-01] MEDS: HEPARIN SODIUM,PORCINE/PF 5,000 UNIT/0.5 ML SYRINGE SQ SCH ×2 (09:06→10:25)
[2021-04-01] MEDS: traMADol 50 MG TAB PO PRN (09:06)
[2021-04-01 09:12] VITALS: BP 121/85; PULSE 96; RESP 18
--- NOTE | 2021-04-01 11:00 | P.PN ---
<Sandra Ascencio - Last Filed: 04/01/21 10:55> Subjective Progress Note Date: 04/01/21 CHIEF COMPLAINT: Abdominal pain HISTORY OF PRESENT ILLNESS: Patient reports improvement in her left lower quadrant abdominal pain. H date the pain is improving. She denies any nausea or vomiting. She is tolerating regular diet. She is having bowel movements. Computed tomography scan of the abdomen and pelvis showing worsening i nflammatory change anterior distal left colon left lower quadrant with a fatty density possibly tubular in shape, with suspected epiploic appendagitis over a mild focal acute colitis. Patient is afebrile. White count remains normal at 8.3 PHYSICAL EXAM: VITAL SIGNS: Reviewed. GENERAL: Well-developed in no acute distress. HEENT: No sclera icterus. Extraocular movements grossly intact. Moist buccal mucosa. Head is atraumatic, normocephalic. ABDOMEN: Soft. Nondistended. Tenderness left lower quadrant NEUROLOGIC: Alert and oriented. Cranial nerves II through XII grossly intact. ASSESSMENT: 1. Left lower quadrant abdominal pain likely secondary to epiploic appendagitis 2. Possible mild colitis PLAN: -Patient can be discharged from surgical standpoint -Recommend that patient continues oral Flagyl for 5 more days Physician Gas Prover note has been reviewed by physician. Signing provider agrees with the documented findings, assessment, and plan of care. Objective - Vital Signs Vital signs: Vital Signs Temp 97.9 F 04/01/21 08:45 Pulse 96 04/01/21 08:45 Resp 18 04/01/21 08:45 BP 121/85 04/01/21 08:45 Pulse Ox 98 04/01/21 08:45 Intake & Output 03/31/21 04/01/21 04/01/21 18:59 06:59 18:59 Intake Total 1000 Balance 1000 Intake: Oral 1000 Other: # Voids 2 - Labs CBC & Chem 7: 04/01/21 06:10 04/01/21 06:10 <Trenton Gan - Last Filed: 04/01/21 12:22> Subjective As above. CAT scan reviewed. Findings and history consistent with epiploic td endage appendicitis. Finish short course of oral Flagyl post discharge. May discharge home. Follow-up as needed. Objective - Vital Signs Vital signs: Vital Signs Temp 97.9 F 07/09/21 08:45 Pulse 96 04/01/21 08:45 Resp 18 04/01/21 08:45 BP 121/85 04/01/21 08:45 Pulse Ox 98 04/01/21 08:45 Intake & Output 03/31/21 04/01/21 04/01/21 18:59 06:59 18:59 Intake Total 1000 Balance 1000 Intake: Oral 1000 Other: # Voids 2 - Labs CBC & Chem 7: 04/01/21 06:10 04/01/21 06:10 Assessment and Plan (1) Intractable abdominal pain Current Visit: Yes Status: Acute Code(s): R10.9 - UNSPECIFIED ABDOMINAL PAIN SNOMED Code(s): 23305109
--- NOTE | 2021-04-20 08:58 | CDI ---
Documentation Clarification Form Date: 04/20/2021 08:11:45 AM From: Jessica Ibrahim RN, CCDS Admit Date: 04/01/2021 01:02:00 AM Patient Name: Mamie Izquierdo Visit Number: [id number] Discharge Date: 04/01/2021 01:52:00 PM ATTENTION: The Clinical Documentation Specialists (CDI) and [facility] Coding Staff appreciate your assistance in clarifying documentation. Please respond to the clarification below the line at the bottom and electronically sign. The CDI & [facility] Coding staff will review the response and follow-up if needed. Please note: Queries are made part of the Legal Health Record. If you have any questions, please contact the author of this message via ITS. Dr. Joe Crawford The patients principal diagnosis the diagnosis that was chiefly responsible for the admission - has not been clearly identified and clarification is requested. The patient presented with the following abdominal pain, evaluated in ED diagnosed with colitis, had normal labs. 04/01 GI assessment: Left lower quadrant abdominal pain likely secondary to epiploic appendagitis. Possible mild colitis History/Risk factors: Left ovarian torsion repair Clinical Indicators: 45-year-old female reports left lower quadrant abdominal pain, nausea and vomiting. 03/31 CT Scan: Worsening inflammatory change anterior distal left colon left lower quadrant with fat density possibly tubular in 03/28 CT scan: Nonspecific findings, correlate for possible colitis, cystitis. Post-op changes. 03/29 Vital Signs: 143/94 23149 97.8 100 % RA Treatment: .9% NS 1,000 mls bolus then 50 mls hr 03/29-03/31 Toradol 15 mg ivp once 03/29 Zofran 4 mg ivp q8 hrs prn Flagyl 500 MG Q 8 HRS In your professional opinion, can you please clarify which diagnosis, after study, was the reason chiefly responsible for the admission? [ ] Left lower quadrant abdominal pain likely secondary to epiploic appendagitis [ ] Left lower quadrant abdominal pain with possible colitis [ ] Other, please specify [ ] Unable to determine (Template Last Revised: November 2020) 1.Left lower quadrant abdominal pain likely secondary to epiploic appendagitis Dictated By: Deyanira Rodney MD Signed By: <Electronically signed by Deyanira Rodney MD> 04/24/21 1920 [facility]
--- NOTE | 2021-04-24 19:20 | P.DS ---
Providers Date of admission: 04/01/21 01:02 Expected date of discharge: 04/01/21 Attending physician: Joe Crawford Consults: 03/29/21 11:41 Consult Physician Urgent Consulting Provider: Trenton Gan Consult Reason/Comments: Abdominal pain, nausea and vomiting Do you want consulting provider notified?: Already Contacted 03/29/21 18:20 Consult Physician Routine Consulting Provider: Mary Bain Consult Reason/Comments: left lower quadrant pain. previous hx of obgyn surgeries. Do you want consulting provider notified?: Yes Primary care physician: Magaly [facility] Course: Patient is a 45-year-old female came to ER with the complaints of abdominal pain in the left lower quadrant for the past 3 days. Sharp deep pain pain. 8 out of 10 in severity. Patient states that she was constipated and has been taking MiraLAX and stool softeners with small bowel movement in the last 3-4 days. Patient is to ER yesterday with similar complaints but improved with symptomatic management. The patient came back to ER since her pain is getting worse. Denied any complaints of fever or chills. Does have nausea or vomiting. Denied any unusual food intake. No recent travel. Denied any dysuria or hematuria. No hematemesis or melena. No chest pain or shortness of. No cough or sputum production. Patient says that she had left ovarian torsion about 20 years ago which was repaired initially. Patient did have after that. Few years after she had endometriosis followed by hysterectomy and a left ovarian resection. CT of the abdomen pelvis without contrast showed nonspecific findings correlate for possible colitis, cystitis. Postop changes noted. Transvaginal ultrasound showed hysterectomy. Bilateral adnexa are obscured due to overlying bowel gas. The ovaries are not visualized. Correlation with surgical history of oophorectomy is recommended. No free fluid. Laboratory data showed WBC 11.7 hemoglobin 15.0 and platelets 336 Sodium 10/24/1940 potassium 3.7 chloride 106 BUN 9 and creatinine 0.77 UA negative for infection Liver Enzymes are not elevated and lipase level 69 03/30/2021 Patient is currently lying in the bed. Awake alert and oriented x3. Left lower quadrant abdominal pain is improved compared to yesterday. Started on oral diet and is very aggressive. Patient has been afebrile. Continued on antibiotics of Flagyl. Laboratory data showed WBC trending down to 9.5 hemoglobin 14.1 and platelets 318 electrolytes within normal limits. Patient is being followed by general surgery and also seen by SECURITY DEVELOPER. 03/31/2021 Patient is currently sitting in the chair. Still having left lower quadrant abdominal pain.. Requiring pain medications. Otherwise tolerating oral diet. Patient has been afebrile. Minimal nausea. No episodes of vomiting. No headache or dizziness or lightheadedness. No chest pain or shortness of breath. General surgery is following. Repeat CT of the abdomen pelvis was ordered due to continued ongoing pain. Continued on empiric antibiotics involve Flagyl. Surgery helped in patient management; 1. Left lower quadrant abdominal pain likely secondary to epiploic appendagitis 2. Possible mild colitis PLAN: -Patient can be discharged from surgical standpoint -Recommend that patient continues oral Flagyl for 5 more days Patient Condition at Discharge: Good Plan - Discharge Summary Discharge Rx Participant: Yes New Discharge Prescriptions: New metroNIDAZOLE [Flagyl] 500 mg PO Q8HR #15 tab traMADol HCL [Ultram] 50 mg PO Q6HR PRN 3 Days #12 tab PRN Reason: Pain Continue Rizatriptan Benzoate [Maxalt] 10 mg PO DAILY PRN PRN Reason: Migraine Headache Discharge Medication List Rizatriptan Benzoate [Maxalt] 10 mg PO DAILY PRN 03/29/21 [History] metroNIDAZOLE [Flagyl] 500 mg PO Q8HR #15 tab 04/01/21 [Rx] traMADol HCL [Ultram] 50 mg PO Q6HR PRN 3 Days #12 tab 04/01/21 [Rx] Follow up Appointment(s)/Referral(s): Trenton Gan MD [Medical Doctor] - 04/05/21 9:45 am Magaly Davison DO [Primary Care Provider] - 04/07/21 9:40 am Activity/Diet/Wound Care/Special Instructions: Continue diet as tolerated. fluids are encouraged. continue ultram for pain. Follow up with physicians as directed. Call physicians with any questions comments concerns worsening returning symptoms, fever, not tolerating diet or fluids, pain not controlled with ultram. Discharge Disposition: HOME SELF-CARE
== END 2021-04-01 13:52 | disposition home or self-care (01) | DRG 394 ==
LOC: EC 08:28 → 6PED 11:40 → OBSVTOIN 04-01 01:02
PROVIDERS: ADMIT Internal Medicine; ATTEND Internal Medicine
DX: K63.89 Other specified diseases of intestine (principal); K57.92 Diverticulitis of intestine, part unspecified, without perforation or abscess without bleeding; K52.9 Noninfective gastroenteritis and colitis, unspecified; K59.00 Constipation, unspecified; N80.1 Endometriosis of ovary; Z90.5 Acquired absence of kidney; Z90.710 Acquired absence of both cervix and uterus; Z90.721 Acquired absence of ovaries, unilateral; Z98.891 History of uterine scar from previous surgery; N73.6 Female pelvic peritoneal adhesions (postinfective)
CPT/HCPCS: 36415; 74177; 76830; 80048; 80053; 81003; 82150; 83605; 83690; 85025; 96361; 96374; 96375; 99285

== ENCOUNTER → 2021-09-07 | Outpatient (CLI) | payer BC ==
--- NOTE | 2021-09-07 15:34 | US ---
EXAMINATION TYPE: US transvaginal DATE OF EXAM: 09/07/2021 COMPARISON: US Transvaginal 03/29/2021 CLINICAL HISTORY: R10.813 RLQ ABD TENDERNESS. Hx of endometriosis and PCOS. Hx of hysterectomy and le ft oophorectomy. TECHNIQUE: Transvaginal (TV). EXAM MEASUREMENTS: Uterus: Surgically absent Endometrial Stripe: Surgically absent Right Ovary: Obscured by overlying bowel gas Left Ovary: Surgically absent 1. Uterus: Surgically absent 2. Endometrium: Surgically absent 3. Right Ovary: Obscured by overlying bowel gas 4. Left Ovary: Surgically absent 5. Bilateral Adnexa: wnl 6. Posterior cul-de-sac: wnl IMPRESSION: Postsurgical change.
== END | disposition home or self-care (01) ==
LOC: RADUSWWP 14:54
PROVIDERS: ATTEND Family Medicine
DX: R10.813 Right lower quadrant abdominal tenderness (principal); Z90.710 Acquired absence of both cervix and uterus; Z90.721 Acquired absence of ovaries, unilateral
CPT/HCPCS: 76830

== ENCOUNTER → 2021-09-08 | Outpatient (CLI) | payer BC ==
--- NOTE | 2021-09-08 13:52 | MM ---
Reason for exam: screening (asymptomatic). Last mammogram was performed 2 years and 10 months ago. History: Family history of breast cancer in maternal grandmother at age 63. Took hormonal contraceptives for 7 years. Physical Findings: A clinical breast exam by your physician is recommended on an annual basis and results should be correlated with mammographic findings. MG 3D Screening Mammo W/Cad Bilateral CC and MLO view(s) were taken. Prior study comparison: November 14, 2018, bilateral MG 3d screening mammo w/cad. September 21, 2017, bilateral MG 3d screening mammo w/cad. The breast tissue is heterogeneously dense. This may lower the sensitivity of mammography. Benign bilateral axillary lymph nodes redemonstrated. ASSESSMENT: Benign, BI-RAD 2 RECOMMENDATION: Routine screening mammogram of both breasts in 1 year.
== END ==
LOC: RADMAMWWP 07:07
PROVIDERS: ATTEND Family Medicine
DX: Z12.31 Encounter for screening mammogram for malignant neoplasm of breast (principal)
CPT/HCPCS: 77063; 77067

== ENCOUNTER → 2021-10-31 | Outpatient (CLI) | payer BC, OTHER | END | disposition home or self-care (01) | LOC: LABWHC1 11:37 | PROVIDERS: ATTEND Emergency Medicine | DX: U07.1 COVID-19 (principal) | CPT/HCPCS: 87635 ==

== ENCOUNTER → 2021-11-25 | Outpatient (CLI) | payer BC ==
--- NOTE | 2021-11-25 09:20 | USB ---
Reason for exam: clinical finding. History: Family history of breast cancer in maternal grandmother at age 63. Took hormonal contraceptives for 7 years. Physical Findings: A clinical breast exam by your physician is recommended on an annual basis and results should be correlated with mammographic findings. US Breast RT Right complete breast ultrasound includes all four quadrants, the retroareolar region and axilla. Finding demonstratesno cystic or solid lesion seen. These results were verbally communicated with the patient and result sheet given to the patient on 11/25/21. ASSESSMENT: Negative, BI-RAD 1 RECOMMENDATION: Return to routine screening mammogram schedule for both breasts. Manage patient on a clinical basis.
== END | disposition home or self-care (01) ==
LOC: RADUSWWP 08:20
PROVIDERS: ATTEND Family Medicine
DX: N64.4 Mastodynia (principal)

== ENCOUNTER → 2022-01-17 | Outpatient (CLI) | payer BC ==
--- NOTE | 2022-01-17 19:13 | CT ---
EXAMINATION TYPE: CT chest wo con CT DLP: 432.30 mGycm, Automated exposure control for dose reduction was used. DATE OF EXAM: 01/17/2022 11:59 AM COMPARISON: None CLINICAL INDICATION:Female, 46 years old with history of R06.2 wheezing, PT c/o wheezing, chest pain. Pt hx Covid in October. Pt states she was told she also had a dislocated rib. Previous x-ray report attached in docs. outside Xray in PACS. No contrast. No prior CT. TECHNIQUE: Multiple axial images were obtained through the chest without IV contrast. Lack of IV or o ral contrast limits evaluation of solid and hollow organ viscera. FINDINGS: LUNGS/ PLEURA: No evidence of focal consolidation, pneumothorax or pleural effusion. AIRWAY: Patent and unremarkable. HEART: Size within normal limits. MEDIASTINUM: No gross evidence of adenopathy. VASCULATURE: No aortic aneurysm. MUSCULOSKELETAL: No acute osseous abnormalities. T6 vertebral body bony island. No evidence of rib di slocation. SOFT TISSUES/LYMPH NODES: Unremarkable. LOWER NECK: No significant findings. UPPER ABDOMEN: Cholecystectomy clips are present. IMPRESSION: 1. No evidence for acute thoracic process. 2. Mild multilevel disc degeneration changes.
== END | disposition home or self-care (01) ==
LOC: RADCTMAIN 11:25
PROVIDERS: ATTEND Family Medicine
DX: R06.2 Wheezing (principal)
CPT/HCPCS: 71250

== ENCOUNTER → 2022-06-08 | Outpatient (CLI) | payer BC ==
--- NOTE | 2022-06-09 08:28 | US ---
EXAMINATION TYPE: US venous doppler duplex LE DATE OF EXAM: 06/08/2022 4:14 PM COMPARISON: NONE CLINICAL HISTORY: R60.0 LOCALIZED EDEMA. Palpable left medial mid calf with pain. No redness or swel ling. No on blood thinners. SIDE PERFORMED: Left TECHNIQUE: The lower extremity deep venous system is examined utilizing real time linear array sonog juanjose with graded compression, doppler sonography and color-flow sonography. VESSELS IMAGED: Common Femoral Vein Deep Femoral Vein Greater Saphenous Vein * Femoral Vein Popliteal Vein Small Saphenous Vein * Proximal Calf Veins (* superficial vessels) Left Leg: Negative for DVT. Area of concern scanned. Echogenic area with shadowing visualized = 0. 8 x 0.9 cm. IMPRESSION: 1. Left lower extremity ultrasound negative for deep venous thrombosis. 2. There is a shadowing echogenic foci in the palpable region. Consider plain film correlation.
== END | disposition home or self-care (01) ==
LOC: RADUSWWP 15:47
PROVIDERS: ATTEND Family Medicine
DX: R60.0 Localized edema (principal)

== ENCOUNTER → 2022-06-14 | Outpatient (CLI) | payer BC ==
--- NOTE | 2022-06-14 16:09 | XR ---
Left leg HISTORY: R 93.6 2 views the left leg correlated to ultrasound 06/08/2022 There is soft tissue swelling present. The knee is not entirely included on exam secondary to patient positioning on the frontal view. Bone mineralization, alignment are maintained. No fracture or dislo cation evident. There is a rounded soft tissue calcification in the medial left leg soft tissues balta uring approximately 7 to 8 mm which is likely to be vascular IMPRESSION: Findings may be related to venous stasis disease, phlebolith. No evident bone abnormality .
== END | disposition home or self-care (01) ==
LOC: RADXRMAIN 15:06
PROVIDERS: ATTEND Nurse Practitioner
DX: R93.6 Abnormal findings on diagnostic imaging of limbs (principal)

== ENCOUNTER → 2023-10-18 | Outpatient (CLI) | payer BC ==
--- NOTE | 2023-10-19 08:28 | MM ---
Reason for Exam: Screening (asymptomatic). Last mammogram was performed 2 year(s) and 1 month(s) ago. Patient History: Menarche at age 12. First Full-Term at age 21. Left ovary removed at age 29. Hysterectomy at age 29. Patient used Hormonal Contraceptives for 7 years. Maternal grandmother had breast cancer, age 63. Risk Values: Renetta 5 year model risk: 0.8%. NCI Lifetime model risk: 8.3%. Prior Study Comparison: 09/21/2017 Bilateral Screening Mammogram, [facility]. 11/14/2018 Bilateral Screening Mammogram, [facility]. 09/08/2021 Bilateral Screening Mammogram, [facility]. Tissue Density: There are scattered fibroglandular densities. Findings: Analyzed By CAD. There is no suspicious group of microcalcifications or new suspicious mass in either breast. Areas of asymmetric density remain unchanged. Overall Assessment: Benign, BI-RAD 2 Management: Screening Mammogram of both breasts in 1 year. Patient should continue monthly self-breast exams. A clinical breast exam by your physician is recommended on an annual basis. This exam should not preclude additional follow-up of suspicious palpable abnormalities. Note on Renetta scores and lifetime risk: 1. A Renetta score greater than 3% is considered moderate risk. If this is the case, consider specialist referral to assess eligibility for a risk reducing agent. 2. If overall lifetime risk for the development of breast cancer is 20% or higher, the patient may qualify for future screening with alternating mammogram and breast MRI. Electronically signed and approved by: Tucker Neri M.D. Radiologist
--- NOTE | 2023-10-19 09:26 | US ---
EXAMINATION TYPE: US thyroid st tissue head/neck DATE OF EXAM: 10/18/2023 COMPARISON: 11/14/2018 CLINICAL INDICATION: Female, 48 years old with history of E04.1 NONT Z12.31 screen mammo;; Patient st ates that this is just a check up. No new pain or symptoms. GLAND SIZE: Right Lobe: 4.8 x 1.7 x 1.6 cm Overall Parenchyma: homogeneous Left Lobe: 4.4 x 1.4 x 1.5 cm Overall Parenchyma: homogeneous Isthmus Thickness: 0.4 cm NODULES RIGHT: # of nodules measured on right: 0 LEFT: # of nodules measured on left: 1 1. 0.3 X 0.3 x 0.2 cm, mid mid, cystic or almost completely cystic, hypoechoic nodule, which is wid er than tall, with smooth margins, without echogenic foci. ISTHMUS: # of nodules measured in the isthmus: 0 Bilateral neck scanned, no evidence of lymphadenopathy. IMPRESSION: Solitary 3 mm TR4 nodule in the left lobe. Not seen previously. 2017 ACR TI-RADS LEVEL: TR-RADS 4 - Moderately Suspicious: Follow if > 1 cm, FNA if > 1.5 cm *Highest TI-RADS level nodule reported
== END | disposition home or self-care (01) ==
LOC: RADUSWWP 15:34
PROVIDERS: ATTEND Internal Medicine
DX: Z12.31 Encounter for screening mammogram for malignant neoplasm of breast (principal); E04.1 Nontoxic single thyroid nodule; Z80.3 Family history of malignant neoplasm of breast
CPT/HCPCS: 76536; 77063; 77067

== ENCOUNTER → 2023-10-20 | Outpatient (CLI) | payer BC ==
[2023-10-20 12:47] LABS: Appearance,Urine Clear (Clear); Bilirubin,Urine Negative (Negative); Blood,Urine Negative (Negative); Color,Urine Colorless; Glucose,Urine (UA) Negative (Negative); Ketones,Urine Negative (Negative); Leukocyte Esterase,Urine Negative (Negative); Nitrite,Urine Negative (Negative); PH, Urine 6.5 (5.0-8.0); Protein,Urine Negative (Negative); Specific Gravity,Urine 1.007 (1.001-1.035); Urobilinogen,Urine <2.0 mg/dL (<2.0)
[2023-10-20 22:50] LABS: Basophils # (A) 0.08 X 10*3/uL (0.00-0.10); Basophils % (A) 0.7 %; Eosinophils # (A) 0.33 X 10*3/uL (0.04-0.35); HGB 14.6 g/dL (12.0-15.0); Lymphocytes # (A) 3.46 X 10*3/uL (0.90-5.00); Lymphocytes % (A) 31.9 %; MCH 30.3 pg (27.0-32.0); MCV 89.2 FL (80.0-97.0); Mean Platelet Volume 10.5 FL (9.5-12.2); Monocytes # (A) 0.65 X 10*3/uL (0.20-1.00); NRBC Per 100 WBC 0 X 10*3/uL (0.00-0.01); Neutrophils # (A) 6.28 X 10*3/uL (1.80-7.70); Neutrophils % (A) 58.1 %; Platelet Count 308 X 10*3/uL (140-440); RBC 4.82 X 10*6/uL (4.10-5.20); RDW 12.8 % (11.5-14.5); WBC 10.83 X 10*3/uL (4.50-10.00)
[2023-10-20 23:18] LABS: Progesterone 0.4 ng/mL
[2023-10-20 23:25] LABS: Microalbumin Creatinine Ratio <30 mg/g Cr (0-30); Urine Creatinine 39.9 mg/dL (28.0-217.0)
[2023-10-20 23:47] LABS: % Iron Saturation 23.58 (12.00-45.00); Chol/HDL Ratio 3.59 Ratio; Iron 75 UG/DL (50-170); LDL Cholesterol,Calculated 93.2 mg/dL (0.0-131.0); Total Iron Binding Capacity 318 UG/DL (228-460)
[2023-10-20 23:48] LABS: ALT 21 U/L (8-44); AST 18 U/L (13-35); Albumin 4.4 g/dL (3.8-4.9); Albumin/Globulin Ratio 1.69 Ratio (1.60-3.17); Alkaline Phosphatase 71 U/L (41-126); BUN/Creat Ratio 12.67 Ratio (12.00-20.00); Blood Urea Nitrogen 11.4 mg/dL (9.0-27.0); Calcium 9.4 mg/dL (8.7-10.3); Carbon Dioxide 24.5 mmol/L (21.6-31.8); Chloride 103 mmol/L (96-109); Follicle Stimulating Hormone 12.3 mIU/mL; Globulin 2.6 g/dL (1.6-3.3); Glucose 83 mg/dL (70-110); Luteinizing Hormone 27.3 mIU/mL; Potassium 4.5 mmol/L (3.5-5.5); Sodium 140 mmol/L (135-145); T4, Free (Free Thyroxine) 1.27 ng/dL (0.80-1.80); Total Bilirubin 0.4 mg/dL (0.3-1.2)
[2023-10-21 00:11] LABS: Thyroid Peroxidase Antibodies 12.2 U/mL (0.0-33.0)
== END | disposition home or self-care (01) ==
LOC: LABWHC1 10:04
PROVIDERS: ATTEND Internal Medicine
DX: Z13.1 Encounter for screening for diabetes mellitus (principal); Z13.29 Encounter for screening for other suspected endocrine disorder; N95.9 Unspecified menopausal and perimenopausal disorder; R53.83 Other fatigue; R53.81 Other malaise
CPT/HCPCS: 36415; 80053; 80061; 81003; 82043; 82306; 82533; 82570; 82607; 82670; 82672; 82746; 83001; 83002; 83036; 83540; 83550; 84144; 84270; 84402; 84403; 84439; 85025; 86376

== ENCOUNTER → 2024-04-23 | Outpatient (CLI) | payer BC ==
--- NOTE | 2024-04-23 17:35 | US ---
EXAMINATION TYPE: US thyroid st tissue head/neck DATE OF EXAM: 04/23/2024 COMPARISON: US 10/18/2023 CLINICAL INDICATION: Female, 48 years old with history of E04.1 NONTOXIC SINGLE THYROID NODULE; Nodul e GLAND SIZE: Right Lobe: 5.2 x 2.1 x 1.7 cm Overall Parenchyma: homogeneous Left Lobe: 4.8 x 1.4 x 1.3 cm Overall Parenchyma: homogeneous Isthmus Thickness: 0.38 cm NODULES RIGHT: # of nodules measured on right: 0 LEFT: # of nodules measured on left: 1 1. 0.5 X 0.4 x 0.3 cm, upper mid, solid or almost completely solid, hypoechoic nodule, which is wid er than tall, with smooth margins, without echogenic foci. Prior size: Does not appear to correlate with prior. ISTHMUS: # of nodules measured in the isthmus: 0 Bilateral neck scanned, no evidence of lymphadenopathy. IMPRESSION: Single subcentimeter left thyroid nodule which does not meet characterization criteria with parents. Similar 10/18/2023. This is not appear to correlate with prior ultrasound. Continued attention follow- up imaging.
== END | disposition home or self-care (01) ==
LOC: RADUSWWP 16:31
PROVIDERS: ATTEND Internal Medicine
DX: E04.1 Nontoxic single thyroid nodule (principal); R22.0 Localized swelling, mass and lump, head
CPT/HCPCS: 76536

== ENCOUNTER → 2024-05-20 | Outpatient (CLI) | payer BC ==
[2024-05-20 15:40] VITALS: BP 137/90; PULSE 81; RESP 16; TEMP 98.3
--- NOTE | 2024-05-20 16:15 | P.SLEEP ---
History of Present Illness H&P Date: 05/20/24 This is a 48-year-old female patient, referred to me for sleep apnea evaluation. There is a concern that the patient has sleep apnea the patient's who has sleep apnea and has noted that his is snoring and occasionally she is quitting breathing at nighttime. The patient goes to bed at around 10 PM, wakes up at around 4:30 AM in the morning. On weekends, she tends to sleep longer and she wakes up at around 7 AM. She has some occasional fatigue and sleepiness. This has not been on a consistent or regular basis. Her current Gentry score is at 5. She does wake up in the middle of the night for no reason and sometimes she has hard time going back to sleep. Most of her arousals are related to urination. She denies waking up choking or gasping for air. No restlessness in lower extremities. No heartburn. No palpitation. No anxiety or panic attacks. Her weight has been gradually off and overall the patient has gained around 40 pounds over the past 10 years. Does not take any naps during the day. No sleep paralysis. No hallucinations. No cataplexy. She has chron ic migraine treated with Maxalt and occasional reflux symptoms treated by omeprazole. Does not utilize any form of alcoholic beverages. No smoking. Drinks 1 cup of coffee in the morning. Sleeps in various body positions and she has no preference. She is a nose breather. Review of Systems Constitutional: Reports fatigue, Reports weight gain Eyes: denies as per HPI, denies blurred vision, denies bulging eye, denies decreased vision, denies diplopia, denies discharge, denies dry eye, denies irritation, denies itching, denies pain, denies photophobia, denies loss of peripheral vision, denies loss of vision, denies tunnel vision/blind spots Ears: deny: decreased hearing, ear discharge, earache, tinnitus Ears, nose, mouth and throat: Reports as per HPI Breasts: absent: as per HPI, change in shape, gynecomastia, masses, nipple discharge, pain, skin changes, swelling Breasts: Reports as per HPI Cardiovascular: Reports as per HPI Respiratory: Reports snoring Gastrointestinal: Reports as per HPI Genitourinary: Reports as per HPI Menstruation: Reports as per HPI Musculoskeletal: Reports as per HPI Musculoskeletal: absent: ankle pain, ankle stiffness, ankle swelling Integumentary: Reports as per HPI Neurological: Reports as per HPI Psychiatric: Reports as per HPI, Reports sleep disturbances Endocrine: Reports as per HPI Hematologic/Lymphatic: Reports as per HPI Allergic/Immunologic: Reports as per HPI Past Medical History Past Medical History: GERD/Reflux Additional Past Medical History / Comment(s): MIGRAINES History of Any Multi-Drug Resistant Organisms: None Reported Past Surgical History: Adenoidectomy, Section, Hysterectomy, Orthopedic Surgery, Tonsillectomy Additional Past Surgical History / Comment(s): lap ovarian cyst removal. right elbow or, R SHOULDER, BILATERAL CARPAL TUNNEL Past Anesthesia/Blood Transfusion Reactions: Postoperative Nausea & Vomiting (PONV) Past Psychological History: No Psychological Hx Reported Smoking Status: Never smoker Past Alcohol Use History: None Reported Past Drug Use History: None Reported - Past Family History Mother Family Medical History: Hyperlipidemia, Hypertension, Thyroid Disorder Additional Family Medical History / Comment(s): SINUS HEADACHES, SLEEP APNEA, THYROID, (FATHER HX ASTHMA/SMOKED 40 YRS, BRONCHITIS, PNEUMONIA)) Medications and Allergies Home Medications Medication Instructions Recorded Confirmed Type Rizatriptan Benzoate [Maxalt] 10 mg PO DAILY PRN 03/29/21 05/20/24 History metroNIDAZOLE [Flagyl] 500 mg PO Q8HR #15 tab 04/01/21 Rx traMADol HCL [Ultram] 50 mg PO Q6HR PRN 3 Days #12 tab 04/01/21 Rx Omeprazole 20 mg PO DAILY 05/20/24 05/20/24 History Allergies Allergy/AdvReac Type Severity Reaction Status Date / Time latex Allergy Swelling Verified 03/29/21 09:50 Sulfa (Sulfonamide Allergy Rash/Hives Verified 03/29/21 09:50 Antibiotics) Physical Exam Vitals: Vital Signs Temp Pulse Resp BP Pulse Ox 05/20/24 15:39 98.3 F 81 16 137/90 95 Intake and Output 05/20/24 05/20/24 05/20/24 06:59 14:59 22:59 Other: Weight 113.171 kg General appearance the patient is morbidly obese, comfortable no acute distress with a body mass index of 44.1 Head exam was generally normal. There was no scleral icterus or corneal arcus. Mucous membranes were moist. Neck was supple and without jugular venous distension, thyromegaly, or carotid bruits. Carotids were easily palpable bilaterally. There was no adenopathy. The patient has a Mallampati class I and the patient has undergone previous tonsillectomy Neck is without jugular venous distension, thyromegaly, or carotid bruits. Carotid upstrokes are brisk bilaterally. Lungs are clear to auscultation and percussion. Cardiac exam reveals the PMI to be normally sized and situated. Rhythm is regular. First and second heart sounds normal. No murmurs, rubs or gallops. Abdominal exam reveals normal bowel sounds, no masses, no organomegaly and no aortic enlargement. Extremities are nonedematous and both femoral and pedal pulses are normal. Examination of the skin revealed no evidence of significant rashes, suspicious appearing nevi or other concerning lesions. Neurologically, the patient is awake and alert and the patient does not have any focal neurological deficit. Cranial nerves are essentially intact. Assessment and Plan Plan: Snoring along with symptoms of fatigue and sleepiness with an Gentry score of 5 Obesity with a BMI of 44.1 Mallampati class I, status post tonsillectomy at a young age History of migraines maintained on Maxalt Acid reflux maintain omeprazole Plan The likelihood of obstructive sleep apnea cannot be completely ruled out. The patient does have some anatomic features to suggest obstructive sleep apnea. Clinically, she is doing well and her functionality has been well-preserved during the day. Based on all this, a home sleep study will be needed to screen this patient for obstructive sleep apnea and make further recommendations accordingly. The patient was advised to maintain good sleep hygiene measures. Sleep on her side, and make an active effort to lose weight. Will make further recommendations based on the results of the home sleep study should there be any need for treatment. He is already implementing conservative measures. Will continue to follow. Sleep Note - Sleep Data ESS Total: 5 - Sleep Note Sleep Note: Temperature: 98.3 F Pulse Rate: 81 Respiratory Rate: 16 Blood Pressure: 137/90 SpO2: 95 Height: 5 ft 3 in Weight: 113.171 kg BMI: Neck Circumference: 15.5
== END ==
LOC: 3 N SLEEP 15:05
PROVIDERS: ATTEND Internal Medicine Critical Care Medicine
CPT/HCPCS: 99211

== ENCOUNTER → 2024-06-06 | Outpatient (CLI) | payer BC ==
--- NOTE | 2024-06-12 13:01 | P.PCN ---
Date of Procedure: 06/06/24 Operative Findings: Home sleep study report Date of service is 06/06/2024 Pertinent history This is a 48-year-old female patient, referred to me for sleep apnea evaluation. There is a concern that the patient has sleep apnea the patient's who has sleep apnea and has noted that his is snoring and occasionally she is quitting breathing at nighttime. The patient goes to bed at around 10 PM, wakes up at around 4:30 AM in the morning. On weekends, she tends to sleep longer and she wakes up at around 7 AM. She has some occasional fatigue and sleepiness. This has not been on a consistent or regular basis. Her current Hext score is at 5. She does wake up in the middle of the night for no reason and sometimes she has hard time going back to sleep. Most of her arousals are related to urination. She denies waking up choking or gasping for air. No restlessness in lower extremities. No heartburn. No palpitation. No anxiety or panic attacks. Her weight has been gradually off and overall the patient has gained around 40 pounds over the past 10 years. Does not take any naps during the day. No sleep paralysis. No hallucinations. No cataplexy. She has chronic migraine treated with Maxalt and occasional reflux symptoms treated by omeprazole. Does not utilize any form of alcoholic beverages. No smoking. Drinks 1 cup of coffee in the morning. Sleeps in various body positions and she has no preference. She is a nose breather. Physical findings The patient's weight is 113 kg and her height is 5 feet and 3 inches with a body mass index of 44.1 Technical description The [employer] system was used to complete his home sleep study. This is a type III home sleep study evaluation the total recording duration was 9 hours and 30 minutes. The study started at 9:31 PM and ended at 7:02 AM. The patient had a total of 9 hours and 18 minutes of flow evaluation in 9 hours and 19 minutes of oxygen saturation evaluation. Results Respiratory analysis showed a total of 8 obstructive apneas and 56 obstructive hypopneas. The resulting AHI was 6.9 consistent with mild obstructive sleep apnea. No positional variation or worsening and sleep apnea in this patient. Oxygenation analysis The baseline pulse ox while awake was 96%. Average pulse ox during sleep was 94%. Minimum pulse ox was 85% and the patient spent only 2 minutes of sleep time below pulse ox of 89% Cardiac summary Average heart rate was 86 with a minimum heart rate of 65 and a maximum heart of 115 Assessment Mild obstructive sleep apnea with an AHI of 6.9. Not associated with any significant nocturnal oxygen desaturations. Obesity with a BMI of 44 Previous tonsillectomy and the patient has a Mallampati class I Chronic migraines Acid reflux Plan This is a case of mild obstructive sleep apnea. The patient does not have any significant comorbid conditions. No significant nocturnal oxygen desaturations. Limited fatigue and sleepiness and an Hext score of 5. Based on all this, I do not think there is an immediate need for CPAP therapy. The patient needs to implement conservative measures including weight loss, sleeping on her side with the head of the bed elevated and implementing good sleep hygiene measures. She may consider an oral appliance for treatment of mild obstructive sleep apnea. Obviously, she needs to be monitored very closely and consider treatment should her symptoms progress and she develops excessive fatigue and sleepiness over the years. For now, recommend conservative measures. No need for CPAP therapy unless her condition changes.
== END ==
LOC: 3 N SLEEP 13:04
PROVIDERS: ATTEND Internal Medicine Critical Care Medicine

== ENCOUNTER → 2024-11-26 | Outpatient (CLI) | payer BC ==
--- NOTE | 2024-11-27 07:45 | MM ---
Reason for Exam: Screening (asymptomatic). Last mammogram was performed 1 year(s) and 2 month(s) ago. Patient History: Menarche at age 12. First Full-Term at age 21. Left ovary removed at age 29. Hysterectomy at age 29. Patient used Hormonal Contraceptives for 7 years. Maternal grandmother had breast cancer, age 63. Last menstrual period: Risk Values: Renetta 5 year model risk: 0.8%. NCI Lifetime model risk: 8.2%. Prior Study Comparison: 11/14/2018 Bilateral Screening Mammogram, [facility]. 09/08/2021 Bilateral Screening Mammogram, [facility]. 10/18/2023 Bilateral MG 3D screening mammo w/cad, [facility]. Tissue Density: The breasts are heterogeneously dense, which may obscure small masses. Findings: Analyzed By CAD. A couple asymmetric densities remain unchanged. There is no suspicious group of microcalcifications or new suspicious mass in either breast. Overall Assessment: Benign, BI-RAD 2 Management: Screening Mammogram of both breasts in 1 year. Patient should continue monthly self-breast exams. A clinical breast exam by your physician is recommended on an annual basis. This exam should not preclude additional follow-up of suspicious palpable abnormalities. Note on Renetta scores and lifetime risk: 1. A Renetta score greater than 3% is considered moderate risk. If this is the case, consider specialist referral to assess eligibility for a risk reducing agent. 2. If overall lifetime risk for the development of breast cancer is 20% or higher, the patient may qualify for future screening with alternating mammogram and breast MRI. [facility], , 11/27/2024 7:42 AM. Electronically signed and approved by: Tucker Neri M.D. Radiologist
== END | disposition home or self-care (01) ==
LOC: RADMAMWWP 15:51
PROVIDERS: ATTEND Internal Medicine
DX: Z12.31 Encounter for screening mammogram for malignant neoplasm of breast (principal); R92.333 Mammographic heterogeneous density, bilateral breasts; Z92.0 Personal history of contraception; Z80.3 Family history of malignant neoplasm of breast
CPT/HCPCS: 77063; 77067

== ENCOUNTER → 2025-01-28 | Outpatient (CLI) | payer BC ==
[2025-01-28 15:21] LABS: Basophils # (A) 0.07 X 10*3/uL (0.00-0.10); Basophils % (A) 0.6 %; Eosinophils # (A) 0.36 X 10*3/uL (0.04-0.35); Eosinophils % (A) 3.3 %; HCT 42.3 % (37.2-46.3); HGB 13.8 g/dL (12.0-15.0); Lymphocytes % (A) 28.8 %; MCHC 32.6 g/dL (32.0-37.0); Mean Platelet Volume 9.8 FL (9.5-12.2); Monocytes # (A) 0.68 X 10*3/uL (0.20-1.00); Monocytes % (A) 6.3 %; NRBC Per 100 WBC 0 X 10*3/uL (0.00-0.01); Neutrophils # (A) 6.54 X 10*3/uL (1.80-7.70); Neutrophils % (A) 60.7 %; Platelet Count 313 X 10*3/uL (140-440); RDW 13.3 % (11.5-14.5); WBC 10.78 X 10*3/uL (4.50-10.00)
[2025-01-28 15:23] LABS: Appearance,Urine Clear (Clear); Bilirubin,Urine Negative (Negative); Blood,Urine Negative (Negative); Color,Urine Yellow (Yellow); Ketones,Urine Negative (Negative); Nitrite,Urine Negative (Negative); PH, Urine 7.5; Specific Gravity,Urine 1.005 (1.001-1.030); Urobilinogen,Urine 0.2 E.U./DL
[2025-01-28 15:39] LABS: BUN/Creat Ratio 11.22 Ratio (12.00-20.00); Blood Urea Nitrogen 10.1 mg/dL (9.0-27.0); Chol/HDL Ratio 3.56 Ratio; Glucose 93 mg/dL (70-110); LDL Cholesterol,Calculated 92.1 mg/dL (0.0-131.0)
[2025-01-28 15:40] LABS: ALT 20 U/L (8-44); AST 16 U/L (13-35); Albumin 4.1 g/dL (3.8-4.9); Albumin/Globulin Ratio 1.58 Ratio (1.60-3.17); Alkaline Phosphatase 66 U/L (41-126); Calcium 8.9 mg/dL (8.7-10.3); Carbon Dioxide 23.1 mmol/L (21.6-31.8); Chloride 105 mmol/L (96-109); Globulin 2.6 g/dL (1.6-3.3); Potassium 4.5 mmol/L (3.5-5.5); Sodium 139 mmol/L (135-145); T4, Free (Free Thyroxine) 1.12 ng/dL (0.80-1.80); Total Bilirubin 0.4 mg/dL (0.3-1.2); Total Protein 6.7 g/dL (6.2-8.2)
== END | disposition home or self-care (01) ==
LOC: LABWHC1 08:13
PROVIDERS: ATTEND Internal Medicine
DX: E66.3 Overweight (principal); E55.9 Vitamin D deficiency, unspecified
CPT/HCPCS: 36415; 80053; 80061; 81003; 82306; 83036; 84439; 84443; 85025